=== PATIENT | male | born 1945 | race Caucasian/White ===

== ENCOUNTER → 2016-12-19 | Outpatient (CLI) | payer BC ==
[~2016-12-19] MED LIST: ASCO500C PO; FISH OI1 PO; LPT40 PO; MULT-506 PO; NXM/40 PO; VERA120T15 PO
[2016-12-19 12:51] LABS: BASO % 1.2 %; BASO ABS # 0.07 K/uL (0-0.2); COMPLETE YES; EOS % 4.9 %; HEMATOCRIT 39.9 % (42-52); LYMPH % 44.3 %; LYMPH ABS # 2.51 K/uL (1.2-3.4); MEAN CELL VOLUME 93.4 fL (80-100); MEAN CORPUSCULAR HEMOGLOBIN 32.8 pg (25-34); MEAN CORPUSCULAR HGB CONC 35.1 g/dl (32-36); MEAN PLATELET VOLUME 11.3 fL (7.4-10.4); MONO % 9.2 %; NEUT % 40.4 %; PLATELET COUNT 193 K/uL (130-400); RED BLOOD COUNT 4.27 M/uL (4.7-6.1); WHITE BLOOD COUNT 5.67 K/uL (4.8-10.8)
[2016-12-19 13:40] LABS: ESTIMATED AVERAGE GLUCOSE 114 mg/dl; HA1C FLAG Normal (Normal)
== END | disposition home or self-care (01) ==
LOC: C.LABBFT 09:29
PROVIDERS: ATTEND Internal Medicine
DX: R73.01 Impaired fasting glucose (principal); D64.9 Anemia, unspecified

== ENCOUNTER → 2017-01-20 | Outpatient (CLI) | payer BC ==
[~2017-01-20] MED LIST changes: +OPTIRAY 320 IV PRN
--- NOTE | 2017-01-20 14:17 | DIAGNOSTIC IMAGING REPORT ---
NECK CTA HISTORY: Stenosis CAROTID ARTERY STENOSIS TECHNIQUE: Multiaxial CT images of the neck were performed following the intravenous administration of contrast to evaluate the major cervical vessels. Maximum intensity projection images were also obtained. All measurements were calculated based on NASCET criteria. COMPARISON STUDY: Carotid Doppler dated 01/14/2014 FINDINGS: The aortic arch and proximal great vessels are widely patent. The vertebral basilar system shows vertebral arteries to be relatively small in caliber bilaterally. There is been a prior gastric pull pull-through procedure of the chest. Evaluation of the carotid systems demonstrates considerable plaque formation at the right carotid bifurcation as well as proximal right internal carotid artery. There is a 50-60% stenosis of the distal common carotid artery. There is a 70-80 the more distal aspects of the right internal carotid artery are unremarkable. Left carotid system shows no significant stenotic process of the left common carotid artery. There is a 50 present stenosis left internal carotid artery. Remainder of the left internal carotid artery distally is unremarkable. Stenosis origin of the right internal carotid artery. 1. 50-60% stenosis distal right common carotid artery. 2. 70-80% stenosis proximal right internal carotid artery. 3. 50% stenosis left internal carotid artery. 4. Minimal narrowing of the vertebral systems with no significant stenotic process. 5. Gastric pull-through procedure of the chest IMPRESSION: No significant stenosis, occlusion, or dissection identified within the carotid or vertebral arteries. Electronically signed by: Arie Yusuf M.D. 01/20/2017 2:15 PM Dictated Date/Time: 01/20/2017 2:09 PM
== END | disposition home or self-care (01) ==
LOC: C.CTS 13:28
PROVIDERS: ATTEND Internal Medicine
DX: I65.29 Occlusion and stenosis of unspecified carotid artery (principal)

== ENCOUNTER → 2017-03-13 | Outpatient (CLI) | payer BC ==
[~2017-03-13] MED LIST changes: -OPTIRAY 320 IV PRN
--- NOTE | 2017-03-13 10:21 | DIAGNOSTIC IMAGING REPORT ---
ULTRASOUND OF THE CAROTID ARTERIES CLINICAL HISTORY: Carotid artery stenosis. COMPARISON STUDY: Carotid artery ultrasound dated 01/14/2014. CT angiogram of the neck dated 01/20/2017. TECHNIQUE: Real-time, grayscale, and color Doppler sonography of the carotid arteries is performed. Images are reviewed in the transverse and longitudinal planes. FINDINGS: Blood pressure in the right arm measures 168/85 and blood pressure in the left arm measures 162/47. The carotid arteries are patent bilaterally and demonstrate antegrade flow. There is moderate echogenic shadowing atherosclerotic plaque seen in the carotid bulbs bilaterally, left greater than right. Normal doppler arterial waveforms are seen throughout. Velocity measurements are listed below. Common carotid peak systolic velocity (cm/sec): RIGHT: 93 LEFT: 111 ICA proximal peak systolic velocity (cm/sec): RIGHT: 76 LEFT: 104 ICA mid peak systolic velocity (cm/sec): RIGHT: 106 LEFT: 101 ICA distal peak systolic velocity (cm/sec): RIGHT: 115 LEFT: 112 ICA/CC peak systolic ratio: RIGHT: 1.2 LEFT: 1.0 Antegrade flow was shown in the vertebral arteries. The external carotid arteries are patent. IMPRESSION: 1. Atherosclerotic plaque with no sonographic evidence of hemodynamically significant stenosis in the right or left carotid arterial system. 2. Antegrade flow is shown in the vertebral arteries. Electronically signed by: Enrike Guy M.D. 03/13/2017 10:19 AM Dictated Date/Time: 03/13/2017 10:17 AM
== END | disposition home or self-care (01) ==
LOC: C.ULTR 09:43
PROVIDERS: ATTEND Surgery
DX: I65.29 Occlusion and stenosis of unspecified carotid artery (principal)

== ENCOUNTER → 2017-06-16 | Outpatient (CLI) | payer BC ==
[2017-06-16 12:30] LABS: BASO ABS # 0.06 K/uL (0-0.2); COMPLETE YES; EOS % 3.3 %; HEMATOCRIT 41.2 % (42-52); LYMPH % 49.2 %; LYMPH ABS # 2.87 K/uL (1.2-3.4); MEAN CELL VOLUME 95.8 fL (80-100); MEAN CORPUSCULAR HEMOGLOBIN 33.3 pg (25-34); MEAN CORPUSCULAR HGB CONC 34.7 g/dl (32-36); MEAN PLATELET VOLUME 11.3 fL (7.4-10.4); MONO % 10.8 %; NEUT % 35.7 %; PLATELET COUNT 195 K/uL (130-400); WHITE BLOOD COUNT 5.83 K/uL (4.8-10.8)
[2017-06-16 12:35] LABS: ALT/SGPT 41 U/L (12-78); AST/SGOT 27 U/L (15-37); BLOOD UREA NITROGEN 17 mg/dl (7-18); BUN/CREATININE RATIO 18.1 (10-20); CARBON DIOXIDE 27 mmol/L (21-32); CHLORIDE 106 mmol/L (98-107); CHOLESTEROL 180 mg/dl (0-200); CREATININE 0.96 mg/dl (0.60-1.40); GLUCOSE 102 mg/dl (70-99); POTASSIUM 4.5 mmol/L (3.5-5.1); SODIUM 139 mmol/L (136-145)
[2017-06-16 12:40] LABS: ALKALINE PHOSPHATASE 97 U/L (45-117); CHOLESTEROL/HDL RATIO 1.9; HDL CHOLESTEROL 95 mg/dl; LDL CHOLESTEROL CALCULATED 72 mg/dl; PROSTATE SPECIFIC ANTIGEN 0.234 ng/ml (0.000-4.000); TRIGLYCERIDES 67 mg/dl (0-150); VERY LOW DENSITY LIPOPROT CALC 13 mg/dl
[2017-06-16 12:55] LABS: ESTIMATED AVERAGE GLUCOSE 114 mg/dl; HA1C FLAG Normal (Normal)
[2017-06-16 12:57] LABS: URINE APPEARANCE CLEAR (CLEAR); URINE BILIRUBIN NEG (NEG); URINE COLOR YELLOW; URINE EPITHELIAL CELL AUTO >30 /lpf (0-5); URINE NITRITE NEG (NEG); URINE SPECIFIC GRAVITY 1.016 (1.000-1.030); UROBILINOGEN NEG (NEG); ZZUR CULT IF INDIC CLEAN CATCH NO
[2017-06-16 13:10] LABS: MANUAL MICROSCOPIC REQUIRED? NO; REVIEW REQ? NO
--- NOTE | 2017-06-27 09:23 | CODING QUERY MEDICAL NECESSITY ---
SUPPORTING DIAGNOSIS NEEDED A supporting diagnosis is required for the test/procedure performed on this patient in order for us to be reimbursed by the patient's insurance. Please provide a supporting diagnosis for the following test/procedure listed below next to the test name along with your signature. *If there is no additional diagnosis for this patient that would support the following test/procedure please document that below next to the test/procedure. Test(s)/Procedure(s) that require a supporting diagnosis: * PSA DIAGNOSIS: Provider Signature: Date: Thank you Pauline Samuel [employer] Once completed, please kindly fax back to [phone] For questions please call [phone]
== END | disposition home or self-care (01) ==
LOC: C.LABBFT 08:42
PROVIDERS: ATTEND Internal Medicine
DX: R73.01 Impaired fasting glucose (principal); N52.9 Male erectile dysfunction, unspecified; E78.00 Pure hypercholesterolemia, unspecified; N40.0 Benign prostatic hyperplasia without lower urinary tract symptoms

== ENCOUNTER → 2017-07-19 | Outpatient (CLI) | payer BC ==
[2017-07-19 12:28] LABS: BLOOD UREA NITROGEN 16 mg/dl (7-18); BUN/CREATININE RATIO 17.4 (10-20); CALCIUM 9.1 mg/dl (8.5-10.1); CARBON DIOXIDE 29 mmol/L (21-32); CHLORIDE 107 mmol/L (98-107); CREATININE 0.91 mg/dl (0.60-1.40); GLUCOSE 100 mg/dl (70-99); POTASSIUM 4.1 mmol/L (3.5-5.1); SODIUM 141 mmol/L (136-145)
== END | disposition home or self-care (01) ==
LOC: C.LABBFT 09:31
PROVIDERS: ATTEND Internal Medicine
DX: I10 Essential (primary) hypertension (principal)

== ENCOUNTER → 2017-09-13 | Outpatient (CLI) | payer BC ==
--- NOTE | 2017-09-13 10:45 | DIAGNOSTIC IMAGING REPORT ---
ULTRASOUND OF THE CAROTID ARTERIES CLINICAL HISTORY: I65.29 Carotid artery stenosis, follow-up examination COMPARISON STUDY: 03/13/2017 TECHNIQUE: Real-time, grayscale, and color Doppler sonography of the carotid arteries was performed. Imaging reviewed in the transverse and longitudinal planes. NASCET criteria was utilized for stenosis calcification. FINDINGS: There is moderate atherosclerotic plaque present . The peak systolic velocity within the right internal carotid artery is 132 cm/sec. The systolic velocity ratio of right internal to common carotid artery is 1.1. The peak systolic velocity within the left internal carotid artery is 145 cm/sec. The systolic velocity ratio left internal to common carotid artery is 1.0. Antegrade flow is seen in the vertebral arteries. The external carotid arteries are patent. Blood pressure in the right arm measured 157 mm/Hg. Blood pressure in the left arm measured 164 mm/Hg. IMPRESSION: 1. Bilateral atheromatous changes 2. Less than 50% stenosis the right internal carotid artery 3. 50-69% stenosis of the left internal carotid artery Electronically signed by: Demetrio Winter M.D. 09/13/2017 10:44 AM Dictated Date/Time: 09/13/2017 10:39 AM
== END | disposition home or self-care (01) ==
LOC: C.ULTR 09:46
PROVIDERS: ATTEND Surgery
DX: I65.23 Occlusion and stenosis of bilateral carotid arteries (principal)

== ENCOUNTER → 2017-10-16 | Day surgery (SDC) | payer BC ==
[2017-09-22 09:50] VITALS: Ht 177.8 cm; Wt 77.3 kg
[~2017-10-16] VITALS: Ht 177.8 cm; Wt 77.3 kg
[~2017-10-16] MED LIST changes: -ASCO500C PO; -FISH OI1 PO; +IRBE-37 PO; +LIDOCAINE HCL 2% 2 ML VIAL (20MG/ML) ONE; +PROPOFOL IV EMULSION 10 MG/ML 20 ML VIAL IV ONE; +SODIUM CHLORIDE 0.9% 500ML 500 ML IV ONE; -VERA120T15 PO
--- NOTE | 2017-10-16 09:50 | Endo History and Physical ---
History & Physical Date of Service: Oct 16, 2017. Chief Complaint: screening Referring Physician: Dr. Rm History of Present Illness 71 yo CM who presents for screening colonoscopy. Past Medical History Arthritis, Male Genitourinary Prob., Reflux, Cancer, High Cholesterol, Hypertension Past Surgical History Hx Cardiac Surgery: No Hx Internal Defibrillator: No Hx Pacemaker: No Hx Abdominal Surgery: Yes (HERNIA REPAIR X2) Hx of Implantable Prosthesis: No Hx Post-Op Nausea and Vomiting: No Hx Cancer Surgery: Yes (BCC EXCISION) Hx Thoracic Surgery: No Hx Orthopedic: Yes (LT RCR) Hx Urinary Tract Surgery: No Family History None Social History Smoking Status: Former Smoker Hx Substance Use: No Hx Alcohol Use: Yes (1 DRINK/DAY) Allergies Coded Allergies: Latex1 -Allergic Contact Dermititis (Verified Adverse Reaction, Unknown, "BURNING SENSATION AT THE DENTIST", 10/16/17) Current Medications Reported Home Medications Medications Dose Route/Sig Max Daily Dose Days Date Category Avapro (Irbesartan) 150 Mg Tab 150 Mg PO QAM 09/22/17 Reported Atorvastatin Calcium (Atorvastatin) 40 Mg Tab 1 Tab PO HS 01/20/16 Reported Multivitamin (Multivitamins) Tab 1 Tab PO QAM 11/27/09 Reported Nexium (Esomeprazole Magnesium) 40 Mg Capcr 40 Mg PO BID 11/27/09 Reported Vital Signs Weight (Kilograms): 77.27 Height (Feet): 5 Height (Inches): 10 Date Time Temp Pulse Resp B/P (MAP) Pulse Ox O2 Delivery O2 Flow Rate FiO2 10/16/17 09:34 36.7 70 18 168/70 (102) 99 Room Air Physical Exam General Appearance: WD/WN, no apparent distress Respiratory/Chest: Auscultation: breath sounds normal Cardiovascular: Heart Auscultation: RRR Abdomen: Bowel Sounds: normal Inspection & Palpation: soft, non-distended, no tenderness, guarding & rebound Assessment and Plan Assessment: 71 yo CM who presents for screening colonoscopy. Plan: Proceed with colonoscopy.
--- NOTE | 2017-10-16 10:22 | GI REPORT ---
Procedure Date: 10/16/2017 9:35 AM Procedure: Colonoscopy Indications: Screening for colorectal malignant neoplasm Medicines: Monitored Anesthesia Care Complications: No immediate complications. Estimated Blood Loss: Estimated blood loss: none. Procedure: Pre-Anesthesia Assessment: - Prior to the procedure, a History and Physical was performed, and patient medications and allergies were reviewed. The patient's tolerance of previous anesthesia was also reviewed. The risks and benefits of the procedure and the sedation options and risks were discussed with the patient. All questions were answered, and informed consent was obtained. Prior Anticoagulants: The patient has taken no previous anticoagulant or antiplatelet agents. ASA Grade Assessment: II - A patient with mild systemic disease. After reviewing the risks and benefits, the patient was deemed in satisfactory condition to undergo the procedure. After I obtained informed consent, the scope was passed under direct vision. Throughout the procedure, the patient's blood pressure, pulse, and oxygen saturations were monitored continuously. The scope was introduced through the anus and advanced to the terminal ileum. The colonoscopy was performed without difficulty. The patient tolerated the procedure well. The quality of the bowel preparation was good. The terminal ileum, ileocecal valve, appendiceal orifice, and rectum were photographed. Findings: A 4 mm polyp was found in the hepatic flexure. The polyp was sessile. The polyp was removed with a cold snare. Resection and retrieval were complete. Multiple small-mouthed diverticula were found in the sigmoid colon. Non-bleeding internal hemorrhoids were found during retroflexion. The hemorrhoids were small. Impression: - One 4 mm polyp at the hepatic flexure, removed with a cold snare. Resected and retrieved. - Diverticulosis in the sigmoid colon. - Non-bleeding internal hemorrhoids. Recommendation: - Resume previous diet. - Continue present medications. - Repeat colonoscopy for surveillance based on pathology results. - Return to primary care physician as previously scheduled. Ildefonso Barillas DO 10/16/2017 10:21:34 AM This report has been signed electronically. Note Initiated On: 10/16/2017 9:35 AM I attest to the content of the Intraoperative Record and orders documented therein, exceptions below
--- NOTE | 2017-10-16 10:33 | Discharge Instructions ---
Endoscopy Patient Instructions Date / Procedure(s) Performed Oct 16, 2017. Colonoscopy Allergy Information Coded Allergies: Latex1 -Allergic Contact Dermititis (Verified Adverse Reaction, Unknown, "BURNING SENSATION AT THE DENTIST", 10/16/17) Discharge Date / Findings Oct 16, 2017. Colon polyp Diverticulosis Internal hemorrhoids Medication Instructions OK to resume all medications today as prescribed Reported Home Medications Medications Dose Route/Sig Max Daily Dose Days Date Category Avapro (Irbesartan) 150 Mg Tab 150 Mg PO QAM 09/22/17 Reported Atorvastatin Calcium (Atorvastatin) 40 Mg Tab 1 Tab PO HS 01/20/16 Reported Multivitamin (Multivitamins) Tab 1 Tab PO QAM 11/27/09 Reported Nexium (Esomeprazole Magnesium) 40 Mg Capcr 40 Mg PO BID 11/27/09 Reported Provider Instructions Activity Restrictions - No exercising or heavy lifting for 24 hours. - Do not drink alcohol the day of the procedure. - Do not drive a car or operate machinery until the day after the procedure. - Do not make any important decisions or sign important papers in 24 hours after the procedure. Following Day: - Return to full activity which may include returning to work/school. Diet Start your diet with liquids and light foods (jello, soup, juice, toast). Then eat your usual diet if not nauseated. Treatment For Common After Affects For mild abdominal pain, bloating, or excessive gas: - Rest - Eat lightly - Lie on right side Follow-Up Information Follow-up with Dr. Rm as scheduled Anesthesia Information What You Should Know You have had a procedure that required some medicine to reduce anxiety and discomfort. This treatment is called moderate sedation. After receiving the treatment, you may be sleepy, but you will be able to breathe on your own. The effects of the treatment may last for several hours. Follow these instructions along with Activity/Diet recommendations noted above: * Do NOT do anything where dizziness or clumsiness would be dangerous. * Rest quietly at home today, then you can be up and about tomorrow. * Have a responsible person stay with you the rest of today. * You may have had an I.V. today. If so, you may take the dressing off later today. Recommendations Call your doctor if: * Trouble breathing * Continuous vomiting for more than 24 hours * Temperature above 101 degrees * Severe abdominal pain or bloating * Pain not relieved by pain medicine ordered * There is increased drainage or redness from any incision * A large amount of rectal bleeding greater than 2-3 tablespoons. (If you had a polyp/s removed or have hemorrhoids, a small amount of blood - from the rectum is to be expected.) * You have any unanswered questions or concerns. IN THE EVENT OF A SERIOUS EMERGENCY, GO TO THE NEAREST EMERGENCY ROOM Your discharge instructions were prepared by provider Ildefonso Barillas. Patient Instructions Signature Page Jacob Arias Patient (or Guardian) Signature/Date: I have read and understand the instructions given to me by my caregivers. Caregiver/RN/Doctor Signature/Date: The above-named patient and/or guardian has received patient instructions on this date. + Original Patient Signature Page (only) stays with chart. Please make copy for patient.
--- NOTE | 2017-10-16 10:51 | Anesthesiology Progress Note ---
Anesthesia Post Op Note Date & Time Oct 16, 2017 at 10:51 Vital Signs Pain Intensity: 0 Vital Signs Past 12 Hours Date Time Temp Pulse Resp B/P (MAP) Pulse Ox O2 Delivery O2 Flow Rate FiO2 10/16/17 10:36 77 18 121/85 (97) 96 Room Air 10/16/17 10:22 36.4 85 18 86/48 (61) 96 Room Air 10/16/17 09:34 36.7 70 18 168/70 (102) 99 Room Air Notes Mental Status: alert / awake / arousable, participated in evaluation Pt Amnestic to Procedure: Yes Nausea / Vomiting: adequately controlled Pain: adequately controlled Airway Patency, RR, SpO2: stable & adequate BP & HR: stable & adequate Hydration State: stable & adequate Anesthetic Complications: no major complications apparent
[2017-10-16 10:56] VITALS: BP 136/64; PULSE 74; O2SAT 98
== END | disposition home or self-care (01) ==
LOC: C.GI 09:08
PROVIDERS: ATTEND Internal Medicine
DX: Z12.11 Encounter for screening for malignant neoplasm of colon (principal); D12.3 Benign neoplasm of transverse colon; K57.30 Diverticulosis of large intestine without perforation or abscess without bleeding; K64.8 Other hemorrhoids; I10 Essential (primary) hypertension; E78.00 Pure hypercholesterolemia, unspecified; K21.9 Gastro-esophageal reflux disease without esophagitis; M19.90 Unspecified osteoarthritis, unspecified site; Z87.891 Personal history of nicotine dependence; Z79.899 Other long term (current) drug therapy

== ENCOUNTER → 2017-12-26 | Outpatient (CLI) | payer BC ==
[~2017-12-26] MED LIST changes: -LIDOCAINE HCL 2% 2 ML VIAL (20MG/ML) ONE; -PROPOFOL IV EMULSION 10 MG/ML 20 ML VIAL IV ONE; -SODIUM CHLORIDE 0.9% 500ML 500 ML IV ONE
[2017-12-26 13:10] LABS: ALBUMIN 3.5 gm/dl (3.4-5.0); ALT/SGPT 56 U/L (12-78); BLOOD UREA NITROGEN 15 mg/dl (7-18); CALCIUM 8.9 mg/dl (8.5-10.1); CARBON DIOXIDE 28 mmol/L (21-32); CHOLESTEROL 160 mg/dl (0-200); CREATININE 0.91 mg/dl (0.60-1.40); GLUCOSE 102 mg/dl (70-99); POTASSIUM 4.2 mmol/L (3.5-5.1); SODIUM 140 mmol/L (136-145)
[2017-12-26 13:14] LABS: ALKALINE PHOSPHATASE 73 U/L (45-117); AST/SGOT 83 U/L (15-37); LDL CHOLESTEROL CALCULATED 74 mg/dl; TOTAL PROTEIN 6.8 gm/dl (6.4-8.2)
== END | disposition home or self-care (01) ==
LOC: C.LABBFT 08:53
PROVIDERS: ATTEND Internal Medicine
DX: R73.01 Impaired fasting glucose (principal); E78.00 Pure hypercholesterolemia, unspecified

== ENCOUNTER 2021-05-02 12:13 | Inpatient (IN) ==
[~2021-05-02 12:13] MED LIST changes: -IRBE-37 PO; -LPT40 PO; -MULT-506 PO; -NXM/40 PO; +SODIUM CHLORIDE 0.9% 500 ML IV STA
[2021-05-02] MEDS ORDERED: ATROPINE SULFATE 0.1 MG/ML 10ML SYR IV STA (12:17)
[2021-05-02] MEDS ORDERED: ASPIRIN CHEW 324 MG PO STA (12:17)
[2021-05-02] MEDS ORDERED: ATROPINE SULFATE 0.1 MG/ML 5ML SYR IV ONE (12:18)
[2021-05-02 12:36] LABS: Basophils # (auto) 0.04 K/uL (0-0.2); Basophils % (auto) 0.4 %; Eosinophils # (auto) 0.07 K/uL (0-0.5); Eosinophils % (auto) 0.7 %; Hematocrit (blood only) 40.5 % (42-52); Hemoglobin 13.9 g/dL (14.0-18.0); Immature Granulocytes # (auto) 0.01 K/uL (0.00-0.02); Immature Granulocytes % (auto) 0.1 %; Lymphocytes # (auto) 4.39 K/uL (1.2-3.4); Lymphocytes % (auto) 46.8 %; Mean Corpuscular Hemoglobin 32.6 pg (25-34); Mean Corpuscular Hgb Conc 34.3 g/dL (32-36); Mean Corpuscular Volume 94.8 fL (80-100); Mean Platelet Volume 12.1 fL (7.4-10.4); Monocytes # (auto) 0.58 K/uL (0.11-0.59); Monocytes % (auto) 6.2 %; Neutrophils # (auto) 4.29 K/uL (1.4-6.5); Neutrophils % (auto) 45.8 %; Platelet Count 171 K/uL (130-400); RDW Coefficient of Variation 13.4 % (11.5-14.5); RDW Standard Deviation 46.3 fL (36.4-46.3); Red Blood Count 4.27 M/uL (4.7-6.1); White Blood Count 9.38 K/uL (4.8-10.8)
[2021-05-02 12:39] LABS: iSTAT Creatinine 1.1 mg/dl (0.6-1.3); iSTAT Hemoglobin 14.3 g/dl (14.0-18.0); iSTAT Ionized Calcium 1.17 mmol/l (1.12-1.32); iSTAT Potassium 3.8 mmol/L (3.3-5.0)
--- NOTE | 2021-05-02 12:40 | Emergency Department Note ---
Impression & Plan ST elevation (STEMI) myocardial infarction, ST elevation myocardial infarction (STEMI) of lateral wall, Syncope, Head injury, Atrial fibrillation, Contusion of elbow, left ED Provider Note NAME: ADAM CASTILLO AGE: 75 SEX: M : 1945 ARRIVES VIA: Ambulance INFORMANT: Patient, ED PROVIDER(S): Geoffrey Garcia DO CHIEF COMPLAINT: Syncope HPI: The patient is a 75-year-old male who presented to the emergency department by ambulance for syncope. The patient states that he was on a stepladder washing the top of the vehicle and started feeling dizzy. He had a syncopal episode and then was on the ground. He was noted to be on the ground and unconscious by a neighbor. The neighbor went to evaluate the patient and he was found to be very diaphoretic and pale. 911 was called and the patient was evaluated by the prehospital personnel. He was then brought to the emergency department via ALS protocol. The patient had a very abnormal EKG prior to arrival. I did receive a prehospital notification about the patient. The patient had EKG changes it could be consistent with ischemia so a heart alert was called. Upon arrival the patient was diaphoretic but he has no complaints at this time. He states he had lightheadedness and dizziness and felt the syncopal episode coming on. He is never had a syncopal episode in the past. He does not have any chest pain at this time. He denies having any shortness of breath or abdominal pain. He denies having any lower extremity pain or recent trauma. The patient states he has been compliant with his other outpatient medications. He states that he has had no recent traveling. He denies having any lower extremity swelling. He denies any injury but did have signs of trauma on the back of his head as well as on his left elbow. ROS: See above HPI for pertinent positives & negatives. A total of 10 systems reviewed and were otherwise negative. PAST MEDICAL HISTORY: See Below PAST SURGICAL HISTORY: See Below FAMILY HISTORY: See Below SOCIAL HISTORY: See Below HOME MEDICATIONS: See Below ALLERGIES: See Below VITALS: See Below PHYSICAL EXAMINATION: GENERAL: The patient is awake and alert. He is somewhat anxious appearing. He is diaphoretic. He is immobilized on a long spine board with rigid cervical collar. EYES: The conjunctivae are clear. The pupils are round and reactive. EARS, NOSE, MOUTH AND THROAT: The nose is without any evidence of any deformity. NECK: The neck is nontender and supple. RESPIRATORY: Normal respiratory effort is noted there is no evidence of wheezing rhonchi or rales CARDIOVASCULAR: Regular rate and rhythm noted there no murmurs rubs or gallops normal S1 normal S2. GASTROINTESTINAL: The abdomen is soft. Abdomen is nontender. No pulsatile mass was appreciated. BACK: No midline tenderness or or step-off noted range of motion in flexion extension as well as rotation no signs of muscle spasm noted MUSCULOSKELETAL/EXTREMITIES: There is no evidence of gross deformity full range of motion is noted in the hips and shoulders. SKIN: Skin was cool and diaphoretic. There was no significant pedal edema. There is an abrasion over the left elbow. NEUROLOGIC: Patient is awake alert and oriented x3. MEDICAL DECISION MAKING: The patient is a 75-year-old male who presented to the emergency department for an evaluation after having a syncopal episode. The patient was on a step ladder washing a car when he had a syncopal episode. He was found by the neighbor. 911 was called. The patient was diaphoretic and had very abnormal EKG prior to arrival. We were called about the patient by the prehospital personnel and the patient was made a heart alert prior to arrival. The patient initially had a wide-complex rhythm. His EKG did appear to be consistent with significant ischemia. He has no history of a bundle branch block in the past. The patient on multiple EKGs. His initial EKG in the emergency department did appear to be consistent with a STEMI. His QRS complex did narrow. He was treated with IV fluids and aspirin in the emergency department. He was reevaluated multiple times. He did receive 1 dose of atropine for bradycardia. A repeat EKG did show significant improvement on the previously noted ST segment abnormalities. I discussed his case multiple times with the sales ambassador. Because the patient presented with trauma CT of the head neck was obtained prior to the patient going to the [facility] to exclude intracranial hemorrhage or cervical spine injury. He also had a CT of the abdomen to ensure that his syncope was not secondary to an intra-abdominal source. The patient had no abdominal pain. He was very diaphoretic initially but this improved as well in the emergency department. The patient himself did not have any chest discomfort. On further questioning by sustainability consultant he did admit that he was having some degree of back pain with exertion this could be consistent with an anginal equivalent. He does have a very significant history of achalasia. The patient ultimately was found to be a good candidate for cardiac catheterization and was taken to the cardiac catheterization lab. Triage Nursing notes reviewed. Prior medical records reviewed Vital Signs: reviewed and remarkable for no significant abnormalities Differential diagnosis: Vasovagal event, dehydration, infection, hypoglycemia, electrolyte abnormalities, cardiac sources, intracerebral event, pulmonary embolism, seizure, toxicologic, neurologic, as well as other pathologies. ER treatment provided: See below Diagnostics interpreted by me: ECG: EKG was obtained in the emergency department. My interpretation is junctional rhythm at 59 bpm. There were no PVCs noted. Acute ST segment elevations were noted in the high lateral leads as well as in the anterior leads. Reciprocal changes were noted in the inferior leads. Consistent with acute ischemia and STEMI. This was compared to a tracing from November 302018. The ischemic changes are new compared to previous. Prehospital personnel provided multiple EKGs. On the EKG from 12:01 PM my interpretation is atrial flutter at 74 bpm. There was a wide-complex QRS noted with acute ST segment depressions noted in the inferior and lateral leads. This is consistent with ischemia unchanged from the earlier tracing. A second 12- lead EKG from 12:03 PM was evaluated by myself. This appears to be consistent with atrial fibrillation at [address] elevation was noted with reciprocal changes in inferior leads. There is consistent with acute STEMI. A second EKG was obtained in the emergency department. My interpretation is atrial fibrillation at 76 bpm. No PVCs were noted. There were still a persistence of ST segment abnormalities in the inferior leads however the ST segment elevations have significantly improved. Cardiac Monitoring: An order was placed for continuous cardiac monitoring. The monitor shows a rate of 85 bpm with atrial fibrillation rhythm. Laboratory studies: As stated above and show below. Imaging studies: See below Consultation(s): I discussed this case with Dr. Rosas who is on-call for interventional cardiology. He will evaluate the patient in the emergency department. ED COURSE: Procedures: none PDMP:reviewed and no issues Critical Care: I have personally spent greater than 45 minutes of critical care time in the direct management of this patient. This includes bedside care, interpretation of diagnostic studies, and testing, discussion with consultants, patient, and family members, and other required patient management activities. This 45 minutes is in excess of all separately billable procedures. Past Med/Surg History Medical History Achalasia Anemia Basal cell carcinoma of skin Benign prostate hyperplasia Carotid artery stenosis, asymptomatic Chronic sinusitis Diverticulosis Dysphagia, pharyngeal phase Esophageal candidiasis Esophagus disorder Essential hypertension Hypercholesterolemia Impaired fasting glucose Internal hemorrhoids Male erectile disorder of organic origin Mitral regurgitation Rheumatic fever Tubular adenoma of colon (2018) Surgical History History of arthroscopy of left shoulder History of esophageal surgery History of vasectomy Status post biopsy of skin Status post unilateral inguinal hernia repair Family History Father Stroke syndrome Hyperlipidemia Mother Hypertension Mother Hypertension Sister Hypertension Other Family history non-contributory Social History Smoking Status: Never smoker Age Started Using Tobacco: 19; Age Quit Using Tobacco: 27; packs per day: 1; Years Smoked: 8; Cigarettes Per Day: 20; Number of Years Since Quit: 46; Second Hand Exposure: No; Hx Alcohol Use: Yes Alcohol type: hard liquor Alcohol Intake Frequency Comment: About 1 alcoholic drink per day. Hx Substance Use: No Preferred Language: Finnish Visual Impairment: No Limitations Hearing Ability: Normal Beliefs That Will Affect Care: None marital status: Current Living Situation: Spouse current occupational status: retired How many Children do You have: 2 Feels Safe at Home: Yes Childhood Exposure to Second-Hand Smoke: Yes caffeine: Yes during the past year weight has: remained stable Dental Care, Regularly: Yes Physical Activity Frequency: 1-2 Times per Week Seatbelt Use: always Sunscreen Use: Yes Allergies Allergies Allergy/AdvReac Type Severity Reaction Status Date / Time No Known Drug Allergies Allergy Verified 11/30/20 10:39 pollen extracts Allergy Verified 11/30/20 10:39 latex AdvReac Unknown "BURNING Verified 11/30/20 10:39 SENSATION AT THE DENTIST" Home Meds Home Medications Medication Instructions Recorded Confirmed aspirin 81 mg tablet,delayed 81 mg PO QAM 11/30/18 11/30/20 release multivitamin 1 tab PO QAM 11/30/18 11/30/20 Previous Rx's Medication Instructions Recorded atorvastatin 80 mg tablet 80 mg PO HS #90 tab 05/25/20 esomeprazole magnesium 40 mg 40 mg PO HS #90 cap 05/25/20 capsule,delayed release irbesartan 300 mg tablet 300 mg PO DAILY #90 tab 05/25/20 sildenafil 100 mg tablet 100 mg PO DAILY PRN #10 tab 05/25/20 amoxicillin 875 mg tablet 875 mg PO Q12H #20 tab 11/30/20 fluconazole 100 mg tablet 100 mg PO .COMPLEX #20 tab 11/30/20 Results & Data (ED) Vital Signs Vital Signs - 24 hr 05/02/21 12:15 05/02/21 12:16 05/02/21 12:20 Temperature 36.7 C Temperature Source Oral Pulse Rate 58 L 58 L 84 Pulse Rate from SpO2 Sensor 58 L 84 Respiratory Rate 20 24 24 Blood Pressure 132/73 132/73 Blood Pressure Mean 92 92 Pulse Oximetry 95 93 92 Oxygen Delivery Method Room Air Sepsis Recent Fever Within 48 Hours No Sepsis New/Unexplained Change in Mental Status No Sepsis Action Taken by Nursing No Action Required Home Medications Current Medication List: was personally reviewed by me Laboratory Data Attestation: I reviewed the patient's lab results. Result diagrams: 05/02/21 12:20 05/02/21 12:20 Lab Results 05/02/21 05/02/21 05/02/21 Range/Units 12:17 12:17 12:20 WBC 9.38 (4.8-10.8) K/uL RBC 4.27 L (4.7-6.1) M/uL Hgb 13.9 L (14.0-18.0) g/dL POC Hgb (14.0-18.0) g/dl Hct 40.5 L (42-52) % POC Hct (42-52) % MCV 94.8 (80-100) fL MCH 32.6 (25-34) pg MCHC 34.3 (32-36) g/dL RDW Std Deviation 46.3 (36.4-46.3) fL RDW Coeff of Rizwan 13.4 (11.5-14.5) % Plt Count 171 (130-400) K/uL MPV 12.1 H (7.4-10.4) fL Immature Gran % (Auto) 0.1 % Neut % (Auto) 45.8 % Lymph % (Auto) 46.8 % Thayer % (Auto) 6.2 % Eos % (Auto) 0.7 % Baso % (Auto) 0.4 % Neut # (Auto) 4.29 (1.4-6.5) K/uL Lymph # (Auto) 4.39 H (1.2-3.4) K/uL Thayer # (Auto) 0.58 (0.11-0.59) K/uL Eos # (Auto) 0.07 (0-0.5) K/uL Baso # (Auto) 0.04 (0-0.2) K/uL Immature Gran # (Auto) 0.01 (0.00-0.02) K/uL PT (9.0-12.0) Seconds INR (0.9-1.1) APTT (21.0-31.0) Seconds PTT Ratio POC Sodium (135-144) mmol/L Sodium (136-145) mmol/L POC Potassium (3.3-5.0) mmol/L Potassium (3.5-5.1) mmol/L POC Chloride (101-112) mmol/L Chloride (98-107) mmol/L Carbon Dioxide (21-32) mmol/L POC Total CO2 (24-31) mmol/L Anion Gap (3-11) POC Anion Gap (16-25) mmol/L POC BUN (7-18) mg/dl BUN (7-18) mg/dl Creatinine (0.6-1.4) mg/dl POC Creatinine (0.6-1.3) mg/dl Est Cr Clr Drug Dosing ml/min Est GFR ( Amer) ml/min Est GFR (Non-Af Amer) ml/min BUN/Creatinine Ratio (10-20) Glucose (70-99) mg/dl POC Glucose (other) (70-99) mg/dl Calcium (8.5-10.1) mg/dl POC Ioniz Calcium Sandrine (1.12-1.32) mmol/l Total Bilirubin (0.2-1) mg/dl AST (15-37) U/L ALT (12-78) U/L Alkaline Phosphatase (45-117) U/L Troponin I (0-0.045) ng/ml Total Protein (6.4-8.2) gm/dl Albumin (3.4-5.0) gm/dl Globulin (2.5-4.0) gm/dl Albumin/Globulin Ratio (0.9-2) Lipase (73-393) U/L COVID-19 Eval Order Covid19 IDNow [facility] SARS-CoV-2, RNA, NAAT NEGATIVE (NEGATIVE) 05/02/21 05/02/21 05/02/21 Range/Units 12:20 12:20 12:25 WBC (4.8-10.8) K/uL RBC (4.7-6.1) M/uL Hgb (14.0-18.0) g/dL POC Hgb 14.3 (14.0-18.0) g/dl Hct (42-52) % POC Hct 42 (42-52) % MCV (80-100) fL MCH (25-34) pg MCHC (32-36) g/dL RDW Std Deviation (36.4-46.3) fL RDW Coeff of Rizwan (11.5-14.5) % Plt Count (130-400) K/uL MPV (7.4-10.4) fL Immature Gran % (Auto) % Neut % (Auto) % Lymph % (Auto) % Thayer % (Auto) % Eos % (Auto) % Baso % (Auto) % Neut # (Auto) (1.4-6.5) K/uL Lymph # (Auto) (1.2-3.4) K/uL Thayer # (Auto) (0.11-0.59) K/uL Eos # (Auto) (0-0.5) K/uL Baso # (Auto) (0-0.2) K/uL Immature Gran # (Auto) (0.00-0.02) K/uL PT 11.1 (9.0-12.0) Seconds INR 1.1 (0.9-1.1) APTT 21.2 (21.0-31.0) Seconds PTT Ratio 0.8 POC Sodium 138 (135-144) mmol/L Sodium 136 (136-145) mmol/L POC Potassium 3.8 (3.3-5.0) mmol/L Potassium 3.7 (3.5-5.1) mmol/L POC Chloride 103 (101-112) mmol/L Chloride 102 (98-107) mmol/L Carbon Dioxide 18 L (21-32) mmol/L POC Total CO2 14 L (24-31) mmol/L Anion Gap 16.0 H (3-11) POC Anion Gap 25.0 (16-25) mmol/L POC BUN 19 H (7-18) mg/dl BUN 20 H (7-18) mg/dl Creatinine 1.41 H (0.6-1.4) mg/dl POC Creatinine 1.1 (0.6-1.3) mg/dl Est Cr Clr Drug Dosing 47.5 ml/min Est GFR ( Amer) 56.5 ml/min Est GFR (Non-Af Amer) 48.7 ml/min BUN/Creatinine Ratio 14.3 (10-20) Glucose 252 H (70-99) mg/dl POC Glucose (other) 265 H (70-99) mg/dl Calcium 9.4 (8.5-10.1) mg/dl POC Ioniz Calcium Sandrine 1.17 (1.12-1.32) mmol/l Total Bilirubin 0.8 (0.2-1) mg/dl AST 114 H (15-37) U/L ALT 113 H (12-78) U/L Alkaline Phosphatase 139 H (45-117) U/L Troponin I 3.380 H* (0-0.045) ng/ml Total Protein 7.2 (6.4-8.2) gm/dl Albumin 3.6 (3.4-5.0) gm/dl Globulin 3.6 (2.5-4.0) gm/dl Albumin/Globulin Ratio 1.0 (0.9-2) Lipase 106 (73-393) U/L COVID-19 Eval Order SARS-CoV-2, RNA, NAAT (NEGATIVE) Administered Medications Discontinued Medications Aspirin (Aspirin Chew 324 Mg) 324 mg PO NOW STA Stop: 05/02/21 12:18 Last Admin: 05/02/21 12:22 Dose: 324 mg Documented by: [id number] Atropine Sulfate (Atropine Sulfate 0.1 Mg/Ml 10ml Syr) 0.5 mg IV NOW STA Stop: 05/02/21 12:18 Last Admin: 05/02/21 12:22 Dose: Not Given Documented by: [id number] Atropine Sulfate (Atropine Sulfate 0.1 Mg/Ml 5ml Syr) Confirm Administered Dose 0.5 mg IV .[employer] Stop: 05/02/21 12:19 Last Admin: 05/02/21 12:21 Dose: 0.5 mg Documented by: [id number] Sodium Chloride (Nss) 500 mls @ 999 mls/hr IV .Q31M STA Stop: 05/02/21 12:42 Last Admin: 05/02/21 12:22 Dose: 999 mls/hr Documented by: [id number] Imaging Data Radiologist's Impression: Cervical Spine CT 05/02/21 12:15 CT OF THE CERVICAL SPINE CLINICAL HISTORY: fall COMPARISON STUDY: No previous studies for comparison. CT DOSE: TECHNIQUE: CT scan of the cervical spine was performed from the skull base to the thoracic inlet. Images are reviewed in the axial, sagittal, and coronal planes. IV contrast was not administered for this examination. A dose lowering technique was utilized adhering to the principles of ALARA. FINDINGS: The visualized portions of the lung apices reveal no evidence of pneumothorax on the left. There is questionable structure with frothy and gas collection between the trachea and vertebral body within thoracic inlet likely representing status post esophagectomy and pull-through procedure. There is possibly small portion o f visualized right lung parenchyma which shows no evidence of pneumothorax. The prevertebral soft tissues are normal. No fractures or subluxations are visualized. Diffuse osteopenia, multilevel heavy anterior osteophytes are seen. Multilevel degenerative changes are seen. Mild stenosis of the central canal is seen at the C6-C7 level. Prominent hypertrophic changes of facet joints are seen causing neural foraminal stenosis at multiple levels bilaterally. IMPRESSION: No acute fracture or traumatic malalignment. Limited exam due to diffuse severe osteopenia. Multilevel degenerative changes as detailed above. Other findings as detailed above. ACT 112: Negative or not required by law. The above report was generated using voice recognition software. It may contain grammatical, syntax or spelling errors. Electronically signed by: Malathi Segura DO 05/02/2021 12:[address] 05/02/21 12:15 CT head/brain wo con CLINICAL HISTORY: fall COMPARISON STUDY: No previous studies for comparison. TECHNIQUE: Axial CT of the brain is performed from the vertex to the skull base. IV contrast was not administered for this examination. A dose lowering technique was utilized adhering to the principles of ALARA. CT DOSE: FINDINGS: No intra or extra-axial mass lesions are visualized. There is no CT evidence of acute cortical infarction. There is no evidence of midline shift. There is no acute hemorrhage. No acute depressed calvarial fractures are visualized. There are patchy white matter hypodensities likely on a small vessel basis. There is no evidence of pathologic ventricular dilatation. There is no evidence of acute sinusitis IMPRESSION: No acute intracranial hemorrhage, no midline shift or space occupying lesions. No acute depressed skull fractures seen. ACT 112: Negative or not required by law. The above report was generated using voice recognition software. It may contain grammatical, syntax or spelling errors. Electronically signed by: Malathi Segura DO 05/02/2021 12:39 PM Abdomen/Pelvis CT 05/02/21 12:24 CT SCAN OF THE ABDOMEN AND PELVIS WITHOUT CONTRAST CLINICAL HISTORY: syncope COMPARISON STUDY: No previous studies for comparison. TECHNIQUE: CT scan of the abdomen and pelvis was performed from the lung bases to the proximal femurs. Images are reviewed in the axial, sagittal, and coronal planes. IV contrast was not administered for this examination. A dose lowering technique was utilized adhering to the principles of ALARA. CT DOSE: 1555.26 mGy.cm FINDINGS: Lower chest: Patchy areas of groundglass attenuation is seen within dependent portions of bilateral lower lobes which might represent atelectasis. 7 mm pulmonary nodule is seen adjacent to the minor fissure on the right. Evaluation of lung parenchyma is significantly limited due to motion artifact. Gas filled partially visualized structure within lower chest cavity might represent significantly dilated esophagus. Liver: The unenhanced liver is normal in size, contour, and attenuation. There is no intrahepatic biliary ductal dilatation. Gallbladder: Unremarkable. Spleen: Normal in size and attenuation. Pancreas: Is atrophic Adrenal glands: Unremarkable. Kidneys: The unenhanced kidneys are normal in size without hydronephrosis. There is no contour deforming renal mass lesion. No renal calculi are identified. Bowel: Nondilated loops of bowel. Appendix is not well seen. Evaluation is limited due to lack of intravenous contrast, motion artifact and beam hardening artifact from patient's arms. Large amount of stool is seen within rectum likely representing fecal impaction. Peritoneum: There is no intraperitoneal free air or abdominal ascites. Vasculature: The abdominal aorta is normal in course and caliber. Scattered sera cifications within aortic wall are seen. Adenopathy: None. Pelvic viscera: Urinary bladder is adequately filled with urine. Prostate gland is not significantly enlarged. Skeletal structures: Severe diffuse osteopenia. Multilevel degenerative changes of the spine. Possible compression fracture deformity of L5 and, to 12 and T10. IMPRESSION: 1. Possibly significantly dilated esophagus. Stomach is seen within the abdomen. Please correlate above-mentioned findings was prior history and gastroenterology evaluation. 2. Nondilated loops of bowel. Appendix is not well seen. Fecal impaction. 3. Atherosclerosis. 4. 7 mm pulmonary nodule within minor fissure on the right. Further evaluation with CT of the chest on nonemergency basis might be considered. 5. Multilevel compression fracture deformity of lumbar spine 6. The rest of findings as above. ACT 112: Positive. There are findings on this exam that require communication between the performing entity and the patient following Patient Test Result Information Act ([place] Act 112) guidelines. The above report was generated using voice recognition software. It may contain grammatical, syntax or spelling errors. Electronically signed by: Malathi Segura DO 05/02/2021 12:55 PM Discharge Plan Visit Data Chief Complaint: Cardiac Assessment Stated Complaint: FALL, CARDIAC ASSESSMENT ED Provider: Geoffrey Garcia Discharge Problem: ST elevation (STEMI) myocardial infarction, ST elevation myocardial infarction (STEMI) of lateral wall, Syncope, Head injury, Atrial fibrillation, Contusion of elbow, left Patient Disposition: Admitted As Inpatient Condition: Good Discharge Instructions Interventions: ED Discharge Assessment Last Done: 05/02/21 13:18
[2021-05-02 12:46] LABS: INR 1.1 (0.9-1.1); Partial Thromboplastin Ratio 0.8; Partial Thromboplastin Time 21.2 Seconds (21.0-31.0); Prothrombin Time 11.1 Seconds (9.0-12.0)
--- NOTE | 2021-05-02 12:47 | CT Scan Report ---
CT OF THE CERVICAL SPINE CLINICAL HISTORY: fall COMPARISON STUDY: No previous studies for comparison. CT DOSE: TECHNIQUE: CT scan of the cervical spine was performed from the skull base to the thoracic inlet. Susan ges are reviewed in the axial, sagittal, and coronal planes. IV contrast was not administered for thi s examination. A dose lowering technique was utilized adhering to the principles of ALARA. FINDINGS: The visualized portions of the lung apices reveal no evidence of pneumothorax on the left. There is q uestionable structure with frothy and gas collection between the trachea and vertebral body within th oracic inlet likely representing status post esophagectomy and pull-through procedure. There is possi enid small portion of visualized right lung parenchyma which shows no evidence of pneumothorax. The prevertebral soft tissues are normal. No fractures or subluxations are visualized. Diffuse osteopenia, multilevel heavy anterior osteophytes are seen. Multilevel degenerative changes are seen. Mild stenosis of the central canal is seen at the C6-C7 lev el. Prominent hypertrophic changes of facet joints are seen causing neural foraminal stenosis at mult iple levels bilaterally. IMPRESSION: No acute fracture or traumatic malalignment. Limited exam due to diffuse severe osteopenia. Multilevel degenerative changes as detailed above. Other findings as detailed above. ACT 112: Negative or not required by law. The above report was generated using voice recognition software. It may contain grammatical, syntax o r spelling errors. Electronically signed by: Malathi Segura DO 05/02/2021 12:46 PM
[2021-05-02] MEDS ORDERED: HEPARIN (PORCINE) 1000 UNIT/ML 10 ML (CATH LAB USE ONLY) ONE (12:49)
[2021-05-02] MEDS ORDERED: niCARdipine HCL INJ 2.5 MG/ML 10 ML AMP ONE (12:49)
[2021-05-02] MEDS ORDERED: fentaNYL citrate 100 MCG/2 ML VIAL ONE (12:49)
[2021-05-02] MEDS ORDERED: MIDAZOLAM HCL 1 MG/ML 2ML VIAL ONE (12:49)
[2021-05-02] MEDS ORDERED: NITROGLYCERIN/D5W 100MCG/ML 20ML SYR ONE (12:50)
--- NOTE | 2021-05-02 12:56 | CT Scan Report ---
CT SCAN OF THE ABDOMEN AND PELVIS WITHOUT CONTRAST CLINICAL HISTORY: syncope COMPARISON STUDY: No previous studies for comparison. TECHNIQUE: CT scan of the abdomen and pelvis was performed from the lung bases to the proximal femurs . Images are reviewed in the axial, sagittal, and coronal planes. IV contrast was not administered fo r this examination. A dose lowering technique was utilized adhering to the principles of ALARA. CT DOSE: 1555.26 mGy.cm FINDINGS: Lower chest: Patchy areas of groundglass attenuation is seen within dependent portions of bilateral l ower lobes which might represent atelectasis. 7 mm pulmonary nodule is seen adjacent to the minor fis sure on the right. Evaluation of lung parenchyma is significantly limited due to motion artifact. Gas filled partially visualized structure within lower chest cavity might represent significantly dilate d esophagus. Liver: The unenhanced liver is normal in size, contour, and attenuation. There is no intrahepatic theresa iary ductal dilatation. Gallbladder: Unremarkable. Spleen: Normal in size and attenuation. Pancreas: Is atrophic Adrenal glands: Unremarkable. Kidneys: The unenhanced kidneys are normal in size without hydronephrosis. There is no contour deform ing renal mass lesion. No renal calculi are identified. Bowel: Nondilated loops of bowel. Appendix is not well seen. Evaluation is limited due to lack of int ravenous contrast, motion artifact and beam hardening artifact from patient's arms. Large amount of s tool is seen within rectum likely representing fecal impaction. Peritoneum: There is no intraperitoneal free air or abdominal ascites. Vasculature: The abdominal aorta is normal in course and caliber. Scattered calcifications within aor tic wall are seen. Adenopathy: None. Pelvic viscera: Urinary bladder is adequately filled with urine. Prostate gland is not significantly enlarged. Skeletal structures: Severe diffuse osteopenia. Multilevel degenerative changes of the spine. Possibl e compression fracture deformity of L5 and, to 12 and T10. IMPRESSION: 1. Possibly significantly dilated esophagus. Stomach is seen within the abdomen. Please correlate ab ove-mentioned findings was prior history and gastroenterology evaluation. 2. Nondilated loops of bowel. Appendix is not well seen. Fecal impaction. 3. Atherosclerosis. 4. 7 mm pulmonary nodule within minor fissure on the right. Further evaluation with CT of the chest on nonemergency basis might be considered. 5. Multilevel compression fracture deformity of lumbar spine 6. The rest of findings as above. ACT 112: Positive. There are findings on this exam that require communication between the performing entity and the patient following Patient Test Result Information Act ([place] Act 112) guidelines. The above report was generated using voice recognition software. It may contain grammatical, syntax o r spelling errors. Electronically signed by: Malathi Segura DO 05/02/2021 12:55 PM
[2021-05-02 13:03] LABS: Albumin Level 3.6 gm/dl (3.4-5.0); BUN Creatinine Ratio 14.3 (10-20); Calcium 9.4 mg/dl (8.5-10.1); Creatinine Clr Calc Pharmacy 47.5 ml/min; Est GFR (African American) 56.5 ml/min; Est GFR (Non-African American) 48.7 ml/min; Potassium 3.7 mmol/L (3.5-5.1)
[2021-05-02 13:10] LABS: Bilirubin,Total 0.8 mg/dl (0.2-1); Globulin 3.6 gm/dl (2.5-4.0); Total Protein 7.2 gm/dl (6.4-8.2); Troponin I 3.38 ng/ml (0-0.045)
--- NOTE | 2021-05-02 13:44 | XRay Report ---
XR chest 1V portable CLINICAL HISTORY: Chest Pain COMPARISON STUDY: November 30, 2018 FINDINGS: No pneumothorax. No pleural effusion. Diffuse reticular prominence of pulmonary interstitium is seen bilaterally and worsening since prior study, associated with peribronchial cuffing and might represent pulmonary edema. Redemonstration of mediastinal widening which was also seen during prior study and might represent di lated esophagus. Cardiac silhouette is within upper limits of normal. Pulmonary vasculature is obscured.. Osseous structures: Degenerative changes of the spine. IMPRESSION: 1. Redemonstration of mediastinal widening which was partially visualized on CT of the cervical spin e and might represent dilated esophagus. Please correlate above-mentioned findings with prior history . 2. Diffuse reticular prominence of pulmonary interstitium and peribronchial cuffing might represent pulmonary edema or bronchitis. ACT 112: Negative or not required by law. The above report was generated using voice recognition software. It may contain grammatical, syntax o r spelling errors. Electronically signed by: Malathi Segura DO 05/02/2021 1:43 PM
[2021-05-02] MEDS ORDERED: HEPARIN 25000 UNIT/500 ML D5W IV ONE (13:56)
--- NOTE | 2021-05-02 14:32 | Cardiology Consultation ---
Date of Consultation May 02, 2021 Assessment & Plan (1) ST elevation (STEMI) myocardial infarction: Presentation consistent with high risk acute coronary syndrome and recommend proceeding with emergent cardiac catheterization and possible PCI. No apparent contraindications to procedure. Discussed risks, benefits, alternatives of procedure with patient and they are willing to proceed. Further recommendations pending findings of coronary angiography. History of Present Illness Attending Physician: Taye Rosas MD History of Present Illness 75-year-old man here with after syncopal event and ECG concerning for acute LA. Patient seen emergently in the ED after heart alert activated en route. No prior cardiac history. Cardiac risk factors include hypertension, dyslipidemia, carotid artery disease and family history of CAD/vascular disease (mother/father). Other medical issues include achalasia/GERD followed by ALIZA Wade. Today was feeling well, was up on a stepladder washing his car and next thing he remembers is being on the ground with his neighbor at his side. Denies any chest pain. Denies any preceding presyncope, palpitations or shortness of breath. ECG in the field showed anterolateral ST elevations. On arrival here was feeling well with no chest pain. Minimal residual anterolateral ST elevation. Transient A. fib with RVR into the 110s which resolved spontaneously. Of note does endorse exertional chest/back pain relieved with rest over the last month. Thought symptoms were secondary to his prior achalasia. 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 Daughter is a nurse at [facility] [facility] ED. Denies significant tobacco use or alcohol. Allergies Allergy/AdvReac Type Severity Reaction Status Date / Time No Known Drug Allergies Allergy Verified 11/30/20 10:39 pollen extracts Allergy Verified 11/30/20 10:39 latex AdvReac Unknown "BURNING Verified 11/30/20 10:39 SENSATION AT THE DENTIST" Home Medications Medication Instructions Recorded Confirmed Type aspirin 81 mg tablet,delayed 81 mg PO QAM 11/30/18 11/30/20 History release multivitamin 1 tab PO QAM 11/30/18 11/30/20 History atorvastatin 80 mg tablet 80 mg PO HS #90 tab 05/25/20 11/30/20 Rx esomeprazole magnesium 40 mg 40 mg PO HS #90 cap 05/25/20 11/30/20 Rx capsule,delayed release irbesartan 300 mg tablet 300 mg PO DAILY #90 tab 05/25/20 11/30/20 Rx sildenafil 100 mg tablet 100 mg PO DAILY PRN #10 tab 05/25/20 05/25/20 Rx amoxicillin 875 mg tablet 875 mg PO Q12H #20 tab 11/30/20 11/30/20 Rx fluconazole 100 mg tablet 100 mg PO .COMPLEX #20 tab 11/30/20 11/30/20 Rx Patient History Medical History Achalasia Anemia Basal cell carcinoma of skin Benign prostate hyperplasia Carotid artery stenosis, asymptomatic Chronic sinusitis Diverticulosis Dysphagia, pharyngeal phase Esophageal candidiasis Esophagus disorder Essential hypertension Hypercholesterolemia Impaired fasting glucose Internal hemorrhoids Male erectile disorder of organic origin Mitral regurgitation Rheumatic fever Tubular adenoma of colon (2018) Surgical History History of arthroscopy of left shoulder History of esophageal surgery History of vasectomy Status post biopsy of skin Status post unilateral inguinal hernia repair Family History Father Stroke syndrome Hyperlipidemia Mother Hypertension Mother Hypertension Sister Hypertension Other Family history non-contributory Social History Smoking Status: Never smoker Age Started Using Tobacco: 19; Age Quit Using Tobacco: 27; packs per day: 1; Years Smoked: 8; Cigarettes Per Day: 20; Number of Years Since Quit: 46; Second Hand Exposure: No; Hx Alcohol Use: Yes Alcohol type: hard liquor Alcohol Intake Frequency Comment: About 1 alcoholic drink per day. Hx Substance Use: No Preferred Language: Malaysian Visual Impairment: No Limitations Hearing Ability: Normal Beliefs That Will Affect Care: None marital status: Current Living Situation: Spouse current occupational status: retired How many Children do You have: 2 Feels Safe at Home: Yes Childhood Exposure to Second-Hand Smoke: Yes caffeine: Yes during the past year weight has: remained stable Dental Care, Regularly: Yes Physical Activity Frequency: 1-2 Times per Week Seatbelt Use: always Sunscreen Use: Yes Review of Systems Review of Systems: Not completed in the setting of emergent situation Physical Exam Physical Exam: General: Comfortable, no acute distress HEENT: Sclerae anicteric Lungs: Clear to auscultation bilaterally Cardiac: Regular rate and rhythm, no murmurs. Abdomen: Soft, nontender Extremities: Warm, well perfused, no edema. 2+ radial pulses Skin: No rashes or lesions. Neuro: Nonfocal Psych: Alert orient x3, normal affect and mood Results & Data ([facility] [place]) Vital Signs (Past 12 Hours) Vital Signs Temp Pulse Resp BP Pulse Ox 05/02/21 12:20 84 24 132/73 92 05/02/21 12:16 58 L 24 93 05/02/21 12:15 98.1 F 58 L 20 132/73 95 PG Care Time/CCT Total # of Minutes Spent Total Time Spent with Patient: Total time spent is greater than 50% in coordination of care (as documented) at patient's floor/unit and/or counseling patient: Coding Level of Care Code 87186 Inpt Consult Level [address] elevation (STEMI) myocardial infarction I21.3 Involved coronary artery: unspecified coronary artery (1) ST elevation (STEMI) myocardial infarction Involved coronary artery: unspecified coronary artery Qualified Code(s): I21.3 - ST elevation (STEMI) myocardial infarction of unspecified site
--- NOTE | 2021-05-02 14:33 | Pre Anesthesia Assessment ---
Date of Service May 02, 2021 Pre Sedation Assessment Vital Signs Temp Pulse Resp BP Pulse Ox 05/02/21 12:20 84 24 132/73 92 05/02/21 12:16 58 L 24 93 05/02/21 12:15 98.1 F 58 L 20 132/73 95 Cardiovascular RRR, no murmur, no edema Respiratory normal respiratory effort, lungs clear to auscultation Pre-Sedation Airway Assessment Smoking Status: Never smoker Hx Sleep Apnea: No Hx Difficult Intubation: No Short, Thick Neck: No Thyromental Distance: > or= 3.5 Finger Breadths Oral Cavity: + WNL Mallampati Class: III ASA: ASA4 Procedure Planning Contraindications for Sedation: none Current Medications Reviewed: Yes Notes The planned sedation has been discussed with the patient. Informed Consent was obtained. I have identified the patient, determined the appropriateness of sedation and have assessed the patient immediately prior to the procedure. All medicine(s) and interventions are by my order.
--- NOTE | 2021-05-02 14:34 | Post Anesthesia Assessment ---
Date of Service May 02, 2021 Post Sedation Assessment Vital Signs Temp Pulse Resp BP Pulse Ox 05/02/21 12:20 84 24 132/73 92 05/02/21 12:16 58 L 24 93 05/02/21 12:15 98.1 F 58 L 20 132/73 95 Recovery Score Activity: Moves 4 extremities Respiration: Deep Breath/Cough Circulation: +/-20% PreAnes Value Consciousness: Fully Awake Oxygen Saturation: O2 needed for >90% Discharge Sedation Level of Care: Fast Track Phase II Post Sedation Plan On clinical assessment, the patient appears to have tolerated the sedation without complications. Patient is recovering as anticipated. Patient will continue to be monitored by nursing and may be discharged when sedation discharge criteria are met per below protocol. Upon Completions of procedure up to 15 minutes continue every 5 minute vital signs and the P.A.R. score; then discharge to a Phase I or Fast Track to Phase II per the following guidelines: * Discharge Patient to appropriate Phase II area if PAR is 8 or greater or return to pre- procedure baseline. The post - procedure orders will be as directed. * If PAR score is less than 8 or not return to pre-procedure baseline then patient will follow Phase I monitoring till PAR is reached for Phase II. The Phase I may be done in procedure room or may call to secure a Phase I area. * If naloxone or flumazenil are used for reversal, hold in Phase I for continued monitoring from when last reversal dose was given for a minimum of 60 minutes or longer pending the nurse and/or physician discretion of patient condition before discharge to Phase II. Please call the Sedation Physician to re-evaluate and complete post-note for discharge to Phase II area. Do NOT discharge from procedure sedation or Phase 1 until post- sedation evaluation note is complete by procedure /sedation MD Sedation Discharge Instructions to be given to the patient at discharge to home.
--- NOTE | 2021-05-02 14:45 | Cardiac Catheterization ---
[employer] Data: [employer] Cardiac Status Clinical evaluation leading to the procedure CAD Presenation: STEMI Anginal Classification: CCS IV Heart Failure: No Cardiogenic Shock within 24 Hours: No Cardiac Arrest within 24 Hours: No Imaging Studies Past 6 Months: No Stress Studies Past 6 Months: No Diagnostic Physicians Name: Taye Rosas MD Closure Device Percutaneous Entry Location: Radial Closure Device: Radial Band Recommendations: CABG Intraprocedure Events Significant Disection: No Perforation: No Cardiac Cath Procedure Full Procedure Date May 02, 2021 Pre-Procedure Diagnosis Pre-Procedure Diagnosis: STEMI AUC Score AUC Score: 9 Post-Procedure Diagnosis Post-Procedure Diagnosis: Severe CAD and Normal Intracardiac Pressures Procedure(s) Performed Procedure(s) Performed: Coronary Angiography, Left Heart Cath, IABP and Ultrasou nd Guided Vascular Access Mems Device Scientist Taye Rosas MD Medical Administrator(s) Kody Estimated Blood Loss Estimated Blood Loss: 15 Medication(s) Medication(s): Fentanyl, Heparin, Lidocaine 1%, Nicardipine, Nitroglycerin and Versed Summary of Findings Indication: Transient anterolateral ST elevations, NSTEMI, syncope Access: 6 Fr right radial artery, 8 Fr right common femoral artery under ultrasound guidance Catheters: [place] Findings: LM -medium caliber, 95% distal stenosis at bifurcation with acute thrombus LAD -calcified, 99% ostial stenosis, 40% lateproximal stenosis at takeoff of small first diagonal, 60% mid stenosis, distal vessel without significant disease and wraps around apex. Circumflex -95% ostial, 50% mid, large OM 2 without significant disease. RCA -dominant, moderate caliber, mild diffuse mid segment disease, 50% distal RCA stenosis, small right PDA without disease. LVEDP -16 IABP placement Right MINESWEEPING OFFICER accessed under ultrasound guidance with placement of 6 Fr sheath Sheath exchanged for 8 Fr sheath Josue 50 cc balloon pump placed to descending aorta Augmenting pressures to 130s on 1:1 Arterial Closure: TR band Summary: 1. Severe left main coronary artery disease extending into ostial LAD/circumflex -95% distal left main at bifurcation 2. Multivessel CAD 99% ostial LAD, 60% mid LAD 95% ostal LCx, 50% mid circumflex 50% distal RCA 3. Borderline intracardiac filling pressure 4. Successful IABP placement Recommendations: Transfer to [facility] for CABG evaluation. Hemodynamics Rest Ao:: 103/61/84 Final Ao: 113/69/87 LV: 111/16 Recommendations Recommendations: CABG Specimens Specimens: None Radiation Exposure (mGy) 696 Contrast (mls) 40 Fluids (cc crystalloids) Fluids (cc crystalloids): 75 Drains Drains: None Anesthesia Moderate Procedural Complication(s) None Disposition [facility] I attest to the content of the Intraoperative Record and any orders documented therein. Any exceptions are noted below. [facility] Card Cath Procedure Codes Cardiac Catheterization Procedure 1: Cardiovascular Cath Procedures: 32446 Coronaries and LHC (+/-LV) Therapeutic Services & Ancillary Proc Procedure 1: Cardiovascular Tx and Anc Procedures: 80163 Ultrasonic Guidance Vascular Access Procedure 2: Cardiovascular Tx and Anc Procedures: 80541 IABP Insertion Moderate Sedation Procedure 1: Sedation/Anesthesia: 18480 Mod Sedation by the same physician;Init15 Min Child Age 5 & Up PG Care Time/CCT Total # of Minutes Spent Total Time Spent with Patient: Total time spent is greater than 50% in coordination of care (as documented) at patient's floor/unit and/or counseling patient:
--- NOTE | 2021-05-02 14:53 | XCELERA ---
[id number]
--- NOTE | 2021-05-02 14:58 | Discharge Summary ---
Date of Service May 02, 2021 Admission HPI Per Admitting Provider 75-year-old man here with after syncopal event and ECG concerning for acute TN. Patient seen emergently in the ED after heart alert activated en route. No prior cardiac history. Cardiac risk factors include hypertension, dyslipidemia, carotid artery disease and family history of CAD/vascular disease (mother/father). Other medical issues include achalasia/GERD followed by [facility], ALIZA. Today was feeling well, was up on a stepladder washing his car and next thing he remembers is being on the ground with his neighbor at his side. Denies any chest pain. Denies any preceding presyncope, palpitations or shortness of breath. ECG in the field showed anterolateral ST elevations. On arrival here was feeling well with no chest pain. Minimal residual anterolateral ST elevation. Transient A. fib with RVR into the 110s which resolved spontaneously. Of note does endorse exertional chest/back pain relieved with rest over the last month. Thought symptoms were secondary to his prior achalasia. 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 Daughter is a nurse at [employer] ED. Denies significant tobacco use or alcohol. Discharge Data Consultations 05/02/21 12:32 Consult Cardiac Catheterization Stat 05/02/21 14:03 Consult Sourcing Manager Routine Procedures Performed Operation Date: 05/02/21 13:00 Actual Procedures p Cath, Left with Cors and Vent - Alexis Rosas MD s Cineradiography w/Routine Exam - Alexis Rosas MD s Intra-Aortic Balloon Insertion - Alexis Rosas MD s Ultrasound Vascular Access - Alexis Rosas MD Hospital Course (1) ST elevation (STEMI) myocardial infarction: Patient taken urgently for cardiac catheterization. He was found to have 95% distal left main disease at bifurcation extending into ostial LAD and circumflex with apparent acute thrombus. IABP placed. Patient remained chest pain-free, hemodynamically and electrically stable. Patient to be transferred to [facility] for cardiac surgery evaluation and likely CABG. Dr. Adams accepting physician. Coding Level of Care Code D/C DAY MANAGEMENT <[address] elevation (STEMI) myocardial infarction I21.3 Involved coronary artery: unspecified coronary artery
--- NOTE | 2021-05-03 08:30 | Electrocardiogram Report ---
Test Reason : Blood Pressure : / mmHG Vent. Rate : 059 BPM Atrial Rate : 060 BPM P-R Int : 000 ms QRS Dur : 100 ms QT Int : 446 ms P-R-T Axes : 000 -59 -10 degrees QTc Int : 441 ms Junctional rhythm Incomplete right bundle branch block Left anterior fascicular block Acute Anteroseptal infarct Acute Lateral infarct Abnormal ECG When compared with ECG of 30-NOV-2018 09:08, Acute infarcts now present Confirmed by Sergio Casillas ([id number]) on 05/03/2021 8:29:31 AM Referred By: REFERRED SELF Confirmed By:Sergio Casillas
--- NOTE | 2021-05-03 08:31 | Electrocardiogram Report ---
Test Reason : Blood Pressure : / mmHG Vent. Rate : 076 BPM Atrial Rate : 104 BPM P-R Int : 000 ms QRS Dur : 104 ms QT Int : 388 ms P-R-T Axes : 000 -57 112 degrees QTc Int : 436 ms Atrial fibrillation with a competing junctional pacemaker Left anterior fascicular block Serial changes of evolving Septal infarct Abnormal ECG When compared with ECG of 02-MAY-2021 12:15, Atrial fibrillation has replaced Junctional rhythm ST no longer elevated in Anterior leads ST elevation in Lateral leads no longer present Confirmed by Sergio Casillas ([id number]) on 05/03/2021 8:31:29 AM Referred By: REFERRED SELF Confirmed By:Sergio Casillas
== END 2021-05-02 14:58 | disposition short-term general hospital (02) | DRG 272 ==
LOC: ED 12:13 → CC 13:15 → 1E 14:02

== ENCOUNTER 2023-03-01 10:30 | Inpatient (IN) ==
--- NOTE | 2023-02-22 13:31 | PAT Medication Instructions ---
Medication Instructions Date of Service February 22, 2023 Home Medications Medication Instructions Recorded atorvastatin 80 mg tablet 80 mg PO HS #90 tabs 12/08/22 esomeprazole magnesium 40 mg 40 mg PO QPM #90 caps 12/08/22 capsule,delayed release (Nexium) sildenafil 100 mg tablet 100 mg PO UD PRN sexual activity 12/08/22 #10 tabs multivitamin 1 tab PO QAM atorvastatin 80 mg tablet 80 mg PO HS esomeprazole magnesium 40 mg capsule,delayed release (Nexium) 40 mg PO QPM sildenafil 100 mg tablet 100 mg PO UD PRN sexual activity rivaroxaban 20 mg tablet 20 mg PO QPM aspirin 81 mg tablet,delayed release (Adult Low Dose Aspirin) 81 mg PO QAM clopidogrel 75 mg tablet (Plavix) 75 mg PO DAILY ezetimibe 10 mg tablet (Zetia) 5 mg PO QAM amlodipine 5 mg tablet 5 mg PO QAM hydrochlorothiazide 25 mg tablet 25 mg PO QAM irbesartan 300 mg tablet 300 mg PO QAM ASK your prescriber and surgeon rivaroxaban 20 mg tablet 20 mg PO QPM aspirin 81 mg tablet,delayed release (Adult Low Dose Aspirin) 81 mg PO QAM clopidogrel 75 mg tablet (Plavix) 75 mg PO DAILY STOP taking 24 hours before surgery sildenafil 100 mg tablet 100 mg PO UD PRN sexual activity DO NOT take the morning of surgery multivitamin 1 tab PO QAM hydrochlorothiazide 25 mg tablet 25 mg PO QAM irbesartan 300 mg tablet 300 mg PO QAM Take morning of surgery With a small sip of water, OTHERWISE NOTHING TO EAT OR DRINK AFTER MIDNIGHT: ezetimibe 10 mg tablet (Zetia) 5 mg PO QAM amlodipine 5 mg tablet 5 mg PO QAM Take evening before surgery atorvastatin 80 mg tablet 80 mg PO HS esomeprazole magnesium 40 mg capsule,delayed release (Nexium) 40 mg PO QPM Other Notes If you have any questions please call us at [phone] or [phone] or [phone] or [phone]
--- NOTE | 2023-02-23 11:13 | Anesthesiology Consultation ---
Date of Service February 23, 2023 Assessment & Plan (1) Encounter for pre-operative examination: - anesthesia reaction: violent reaction post-op. - cardiology clearance 02/20/23 [place]: "...Stable from a cardiac standpoint. Remains active, exercising regularly without exertional symptoms. On exam today no signs of heart failure or new PVD. Blood pressure reasonably controlled. Plan to continue ASCVD secondary prevention including current statin/Zetia and antihypertensives (ARB, thiazide, CCB). Continue current Xarelto for AF. Patient planning to undergo TCAR with vascular surgery. Will defer additional antiplatelet therapy to them post stenting. From a cardiac standpoint patient relatively low risk for planned vascular surgery and okay to proceed without additional cardiac testing. Xarelto can be held for 72 hours prior to procedure if needed..." - pulmonology 01/26/23 [place]: "...Multiple pulmonary nodules. Largest being 6 mm in the right lower lobe appreciated on CT chest 12/2021. In the patient was in the 8-pack-year smoking history quit in 1973. Would be considered low risk. Patient denies any B type symptoms...repeat a CT chest in 1 year, if on the repeat CT chest the nodules are stable then no more CAT scans going forward. CT chest 11/22/2022 personally reviewed: Gastric pull-through procedure with debris within. Right lower lobe peripheral 6 mm pulmonary nodule, left lower lobe two 5 mm pulmonary nodules (unchanged 12/2019). No mediastinal lymphadenopathy-- Chronic cough Likely secondary to esophagectomy status post gastric pull-up. Possible aspiration with reflux --> continue with Nexium. Advised the patient to eat slowly and in small portions..." Chart Review Chart Review: Acceptable Risk for Surgery and Patient seen in Pre Admission Testing Teaching & Discussion Pre-Anesthesia Teaching/Discussion Notes: Instructed NPO after midnight before surgery, except medications with 15 cc of water. Medication instructions provided according to the PAT guidelines. History Surgery Operation Date: 03/01/23 11:50 Proposed Procedures p Right Transcarotid Artery Revascularization - Norbert Whitehead MD Height/Weight Height: 5 ft 9 in Weight: 68.039 kg Allergies Allergy/AdvReac Type Severity Reaction Status Date / Time pollen extracts Allergy Unknown IN THE Verified 02/22/23 12:46 SPRING, ITCHY EYES, RUNNY NOSE No Known Drug Allergies Allergy Verified 02/22/23 12:46 latex AdvReac Unknown "BURNING Verified 02/22/23 12:46 SENSATION AT THE DENTIST" Medications Home Medications Medication Instructions Recorded Confirmed Last Taken multivitamin 1 tab PO QAM 11/30/18 02/22/23 05/10/22 atorvastatin 80 mg tablet 80 mg PO HS #90 tabs 12/08/22 02/22/23 Unknown esomeprazole magnesium 40 mg 40 mg PO QPM #90 caps 12/08/22 02/22/23 Unknown capsule,delayed release (Nexium) sildenafil 100 mg tablet 100 mg PO UD PRN sexual activity 12/08/22 02/22/23 Unknown #10 tabs rivaroxaban 20 mg tablet 20 mg PO QPM 01/11/23 02/22/23 Unknown aspirin 81 mg tablet,delayed 81 mg PO QAM 02/20/23 02/22/23 Unknown release (Adult Low Dose Aspirin) ezetimibe 10 mg tablet (Zetia) 5 mg PO QAM 02/20/23 02/22/23 Unknown amlodipine 5 mg tablet 5 mg PO QAM 02/22/23 02/22/23 Unknown hydrochlorothiazide 25 mg tablet 25 mg PO QAM 02/22/23 02/22/23 Unknown irbesartan 300 mg tablet 300 mg PO QAM 02/22/23 02/22/23 Unknown Brilinta 75 mg PO BID 02/23/23 02/23/23 Unknown Past Medical History Medical History (Updated 02/23/23 @ 11:39 by Maribel Carvalho PA-C) Achalasia Afib on anticoagulation Basal cell carcinoma of skin HX / 20 YR AGO Benign prostate hyperplasia CAD (coronary artery disease) s/p CABG x 2 04/2021 Carotid artery stenosis, asymptomatic > 70% occlusion R ICA, upcoming R CEA Essential hypertension variable History of anesthesia reaction TEND TO SWING AT PEOPLE WHEN WAKING UP FROM ANESTHESIA History of cardiac murmur History of gastric ulcer History of myocardial infarction 2020...CATH...BYPASS SX Hypercholesterolemia Internal hemorrhoids HX Ischemic cardiomyopathy EF 50%, recovered from 25-30% Male erectile disorder of organic origin Pulmonary hypertension Mild pulmonary hypertension, Est PASP 40-45 mmHg-09/2021 echo Pulmonary nodules annual CT @ [place] Rheumatic fever HX Tubular adenoma of colon (2017) HX / BENIGN Patient denies h/o stroke, seizures, DM, blood clots or blood transfusions. Exercise / Class Metabolic Activity II 4-5 Yardwork/Stairs/Walk up hill (denies chest discomfort or shortness of breath with 1 FOS) Past Family History Family History Father Stroke syndrome Hyperlipidemia Mother Hypertension Mother Hypertension Sister Hypertension Aunt Breast cancer Other Family history non-contributory Denies family history of Prostate cancer Colorectal cancer Past Surgical History Surgical History History of arthroscopy of left shoulder History of cardiac cath PRIOR TO HEART BYPASS - [facility] History of colonoscopy History of endoscopy History of esophageal surgery POEM APPROX 5 YR AGO History of heart bypass surgery 1 YR AGO , APRIL 2021 - [place] History of left cataract surgery "Patient bradycardic with what appears to be junctional rhythm in 30's, BP stable, patient up to chair at bedside without issues, denies lightheadedness/palpitations. Patient states he's always had HR in 40s at rest. Last EKG shows Aflutter with junctional rhythm at last cardiology appointment..." History of right cataract surgery History of vasectomy Status post biopsy of skin Status post unilateral inguinal hernia repair Past Anesthesia History No Family Hx of Anesthesia Complications and Other (violent action post-op) History of PONV No Hx of PONV and No Hx of Motion Sickness Social History Smoking Status: Former smoker tobacco type: cigarettes and pipe Do You Dip or Chew Tobacco: No Hx Alcohol Use: Yes Alcohol type: hard liquor alcohol intake frequency: 0-2 drinks per day (1 bourbon and coke) Hx Substance Use: No substance use type: does not use Review of Systems Patient denies chest pain, shortness of breath, dyspnea on exertion, snoring, witnessed apneas, fever, chills, cough, wheezing, or palpitations. Physical Exam Vital Signs Vitals BP 167/75 P 49 TEMP 97.8 SP02 100% on RA RESP 17 Physical Full cervical extension range of motion without pain TMD 3.5 finger breadths Mallampati Score 3 Dentition: multiple crowns, denies chipped or loose teeth, caps, implants or bridges Lungs: normal respiratory effort. Good air movement, clear throughout to auscultation, no adventitious breath sounds Cardiac: regular rate and rhythm, no murmurs noted Lab Results Anesthesia Preop Results Results Anesthesia Widget: WBC 5.62 K/ul (4.8-10.8) 02/23/23 Hgb 12.9 g/dl (14.0-18.0) L 02/23/23 Hct 35.6 % (42.0-52.0) L 02/23/23 Plt 157 K/uL (130-400) 02/23/23 Na 138 mmol/L (136-145) 02/23/23 K 4.2 mmol/L (3.5-5.1) 02/23/23 Cl 103 mmol/L (98-107) 02/23/23 CO2 25 mmol/L (21-32) 02/23/23 BUN 20 mg/dl (6-23) 02/23/23 Creat 1.01 mg/dl (0.6-1.4) 02/23/23 Glucose Level 116 mg/dl (70-99(Fasting)) H 02/23/23 PT 17.7 Seconds (9.0-12.0) H 02/23/23 PTT 35.6 Seconds (21.0-31.0) H 02/23/23 INR 1.7 (0.9-1.1) H 02/23/23 HA1c 6.0 % (4.5-5.6) H 01/04/23 Blood Type A Positive 02/23/23 Antibody Screen NEGATIVE 02/23/23 Testing Electrocardiogram Date: 02/23/23 Sinus rhythm with 2nd degree AV block (Mobitz I), rate 47 bpm Echocardiogram Date: 09/08/21 EF 50-55% Abnormal septal motion consistent with post-operative state/conduction abnormality Mild cLVH Mild mitral regurgitation Mild pulmonary hypertension, Est PASP 40-45 mmHg Cardiac Catheterization Date: 05/02/21 LM -medium caliber, 95% distal stenosis at bifurcation with acute thrombus LAD -calcified, 99% ostial stenosis, 40% lateproximal stenosis at takeoff of small first diagonal, 60% mid stenosis, distal vessel without significant disease and wraps around apex. Circumflex -95% ostial, 50% mid, large OM 2 without significant disease. RCA -dominant, moderate caliber, mild diffuse mid segment disease, 50% distal RCA stenosis, small right PDA without disease. 1. Severe left main coronary artery disease extending into ostial LAD/circumflex -95% distal left main at bifurcation 2. Multivessel CAD 99% ostial LAD, 60% mid LAD 95% ostal LCx, 50% mid circumflex 50% distal RCA 3. Borderline intracardiac filling pressure 4. Successful IABP placement Recommendations: Transfer to [facility] for CABG evaluation. Other Testing Neck CTA 01/25/23 Greater than 70% occlusion of the right ICA, minimally progressed from prior exam. Nonhemodynamically significant stenosis in the left ICA. Additional findings as above. Assessment of stenosis of the internal carotid arteries is based on NASCET criteria. Chest CT 11/22/22 1. No change in multiple small pulmonary nodules since chest CT of December 16, 2021. These are probably benign. Follow up chest CT in one year to ensure continued stability is recommended. 2. No change in a markedly dilated esophagus which contains ingested contents. This may reflect achalasia. COVID-19 Risk Screen Screening Information COVID-19 Screen Date: 02/23/23 Exposure 21 Days Family/Household +COVID Last 21 Days: No Exposure 10 Days Any COVID Exposure Last 10 Days: No Symptoms Last 10 Days Experienced COVID Sx Last 10 Days: No + COVID 0-90 Days COVID + in Last 0-90 Days: No
--- NOTE | 2023-02-28 15:07 | History & Physical Report ---
Date of Service February 28, 2023 History of Present Illness Primary Care Provider: Taye Rm MD Name: ADAM CASTILLO Patient Number: [id number] : 1945 Date of Service: 02/16/2023 REQUESTING PHYSICIAN'S NAME: MD Charley Norbert Naheed REASON FOR CONSULTATION: _Right internal carotid artery stenosis ASSESSMENT: _Severe stenosis of the right internal carotid artery PLAN: _ This point patient is asymptomatic from carotid disease however he does have a severe greater than 90% narrowing of his right internal carotid artery. We went over the risks options and benefits of intervention on this tight stenosis. He understood the risks options and benefits of both endarterectomy versus TCAR and has elected to go ahead with the TCAR procedure. He is seeing his actuarial science professor on Monday for follow-up visit. He says right now he is under a lot of stress and concern for his who is early dementia and will call our office early next week to arrange the TCAR procedure. He is not on any aspirin or Plavix. Both were started today and he will continue both of these as well as his statin if he elects to go ahead with the TCAR. Thank you very much for letting us dissipate in care of this patient. Sincerely, Deisy Whitehead MD Hospital Day: 0 Surgical Hospital Day/Procedure: No procedures found No diagnoses found Past Medical History: Problems: Carotid stenosis, bilateral Seborrheic keratoses Abdominal distension Weight disorder Arthritis Heart burn Kidney stones Transient acantholytic dermatosis Elevated cholesterol Reflux HTN (hypertension) Rotator cuff syndrome Shoulder pain Actinic keratosis History of basal cell cancer SUBJECTIVE: _I had the pleasure of seeing Armando today for evaluation of his carotid disease. As you know he is a 77-year-old gentleman who is being followed for carotid disease in the past. He recently had a CT angiogram which showed a greater 90% narrowing of his right internal carotid artery. He is asymptomatic at this point. He has no complaints of weakness paresthesias or amaurosis fugax. He does have a history of coronary occlusive disease with bypass done in 2020. He also has history of hypertension hyperlipidemia and prediabetes. His other complaints is a problem with achalasia where he is followed by GI at [place]. OBJECTIVE: _ Vitals: Last Updated 05/11/23 09:41 Weights: Last Updated 02/16/23 09:40 Date Temp Pulse BP RR SpO2 FIO2 Date Wt(kg) Wt(lb) 02/16 09:41 158/80 02/16 09:40 69.7 153 02/16 09:40 56 166/82 99 02/16 09:40 69.7 153 24 Hr Tmax: No Data Available 36 Hr Tmax: No Data Available Vital Signs are the last 5 in the past 48 hours. Weights display the last 5 within 7 days. Initial Wt: 02/16 69.7 kg 153 lb No I and O Data Available Physical Exam: General: _Patient is awake alert and oriented x3. He is in no apparent distress. His blood pressure is 166/82 on the left and 158/80 on the right. HEENT: _ Heart: His heart had a regular rate and rhythm. There is a right carotid bruit auscultated. Chest: Lungs are clear to auscultation. Abdomen: _Abdominal exam is benign. I cannot appreciate a widened pulse. Extremity: _He is got normal upper and lower extremity pulses. No ulcerations are noted of the upper or lower extremities. Neuro: _He is neurologically intact to motor and sensory function. Skin: _ Other: _ No 72hr Lab Data Radiologic Studies in last 48 hours: No orders found Active Inpt Meds: None Active PRN Meds: None One Time Meds: None Active IV Meds: None Signature Line Electronic Signature on File Electronically Reviewed/Signed by: Norbert Whitehead MD Author Signature Dt/Tm:02/16/2023 12:42 PM Channeler Insole Burt Miller [facility] [place], [address] [place], [place] [address] Result Type: Physician Consult Date of Service: February 16, 2023 12:34 EDT Authorization Status: Final Author or Import Date: MD Whitehead Eugene J on February 16, 2023 12:42 EDT Verified By: MD Whitehead Eugene J on February 16, 2023 12:42 EDT Encounter info: [id number], G [facility], Clinic, 02/16/2023 - 02/16/2023 Allergies Allergy/AdvReac Type Severity Reaction Status Date / Time pollen extracts Allergy Unknown IN THE Verified 02/22/23 12:46 SPRING, ITCHY EYES, RUNNY NOSE No Known Drug Allergies Allergy Verified 02/22/23 12:46 latex AdvReac Unknown "BURNING Verified 02/22/23 12:46 SENSATION AT THE DENTIST" Home Medications Medication Instructions Recorded Confirmed Type multivitamin 1 tab PO QAM 11/30/18 02/22/23 History atorvastatin 80 mg tablet 80 mg PO HS #90 tabs 12/08/22 02/22/23 Rx esomeprazole magnesium 40 mg 40 mg PO QPM #90 caps 12/08/22 02/22/23 Rx capsule,delayed release (Nexium) sildenafil 100 mg tablet 100 mg PO UD PRN sexual activity 12/08/22 02/22/23 Rx #10 tabs rivaroxaban 20 mg tablet 20 mg PO QPM 01/11/23 02/22/23 History aspirin 81 mg tablet,delayed 81 mg PO QAM 02/20/23 02/22/23 History release (Adult Low Dose Aspirin) ezetimibe 10 mg tablet (Zetia) 5 mg PO QAM 02/20/23 02/22/23 History amlodipine 5 mg tablet 5 mg PO QAM 02/22/23 02/22/23 History hydrochlorothiazide 25 mg tablet 25 mg PO QAM 02/22/23 02/22/23 History irbesartan 300 mg tablet 300 mg PO QAM 02/22/23 02/22/23 History Brilinta 75 mg PO BID 02/23/23 02/23/23 History Past Med/Surg History Medical History (Updated 02/23/23 @ 11:39 by Maribel Carvalho PA-C) Achalasia Afib on anticoagulation Basal cell carcinoma of skin HX / 20 YR AGO Benign prostate hyperplasia CAD (coronary artery disease) s/p CABG x 2 04/2021 Carotid artery stenosis, asymptomatic > 70% occlusion R ICA, upcoming R CEA Essential hypertension variable History of anesthesia reaction TEND TO SWING AT PEOPLE WHEN WAKING UP FROM ANESTHESIA History of cardiac murmur History of gastric ulcer History of myocardial infarction 2020...CATH...BYPASS SX Hypercholesterolemia Internal hemorrhoids HX Ischemic cardiomyopathy EF 50%, recovered from 25-30% Male erectile disorder of organic origin Pulmonary hypertension Mild pulmonary hypertension, Est PASP 40-45 mmHg-09/2021 echo Pulmonary nodules annual CT @ [place] Rheumatic fever HX Tubular adenoma of colon (2017) HX / BENIGN Surgical History History of arthroscopy of left shoulder History of cardiac cath PRIOR TO HEART BYPASS [facility] History of colonoscopy History of endoscopy History of esophageal surgery POEM APPROX 5 YR AGO History of heart bypass surgery 1 YR AGO , APRIL 2021 - [place] History of left cataract surgery "Patient bradycardic with what appears to be junctional rhythm in 30's, BP stable, patient up to chair at bedside without issues, denies lightheadedness/palpitations. Patient states he's always had HR in 40s at rest. Last EKG shows Aflutter with junctional rhythm at last cardiology appointment..." History of right cataract surgery History of vasectomy Status post biopsy of skin Status post unilateral inguinal hernia repair Family History Father Stroke syndrome Hyperlipidemia Mother Hypertension Mother Hypertension Sister Hypertension Aunt Breast cancer Other Family history non-contributory Denies family history of Prostate cancer Colorectal cancer Social History Smoking Status: Former smoker Age Started Using Tobacco: 19; Age Quit Using Tobacco: 27; packs per day: 1; Second Hand Exposure: No; Do You Dip or Chew Tobacco: No; Tobacco Cessation Education Requested by Patient: No Hx Alcohol Use: Yes Alcohol type: hard liquor Alcohol Intake Frequency Comment: About 1 alcoholic drink per day. Hx Substance Use: No Preferred Language: Macedonian Communication Ability: Effective Visual Impairment: No Limitations Hearing Ability: Normal Sas Programmer Required: No Beliefs That Will Affect Care: None marital status: Current Living Situation: Spouse current occupational status: retired current occupation: Retired How many Children do You have: 2 Feels Safe at Home: Yes Safety Concerns: Feels Safe At This Time Childhood Exposure to Second-Hand Smoke: Yes Diet: regular caffeine: Yes during the past year weight has: remained stable Dental Care, Regularly: Yes Physical Activity Frequency: 1-2 Times per Week Seatbelt Use: always Sunscreen Use: Yes Assistive Devices: Glasses
[~2023-03-01 10:30] MED LIST changes: +LACTATED RINGER'S 1,000 ML IV SCH; +PHENYLEPHRINE HCL 25 MG/250 ML NSS IV ONE; -SODIUM CHLORIDE 0.9% 500 ML IV STA; +ceFAZolin 2000MG 2,000 MG/15 ML SYR IV SCH
--- NOTE | 2023-03-01 12:45 | Communication Note ---
Date of Service: March 01, 2023 Patient found today to be in complete heart block with sinus rhytm. Can not do a TCAR with low heart rate. Will consult his content management consultant.
--- NOTE | 2023-03-01 16:08 | Electrocardiogram Report ---
Test Reason : Blood Pressure : / mmHG Vent. Rate : 039 BPM Atrial Rate : 066 BPM P-R Int : 000 ms QRS Dur : 114 ms QT Int : 570 ms P-R-T Axes : 000 -24 068 degrees QTc Int : 458 ms Sinus rhythm with complete heart block with junctional escape Cannot rule out Anterior infarct (cited on or before 01-MAR-2023) Abnormal ECG When compared with ECG of 23-FEB-2023 11:29, Significant changes have occurred Confirmed by Geoffrey Rice ([id number]) on 03/01/2023 4:08:32 PM Referred By: Norbert Whitehead Confirmed By:Geoffrey Rice
--- NOTE | 2023-03-01 17:21 | Communication Note ---
Date of Service: March 01, 2023 Patient in complete heart block,case cancelled. Pt to have pacemaker inserted by Dr Wilson.
[2023-03-01] MEDS: TICAGRELOR 90 MG TAB PO SCH (20:23)
[2023-03-01] MEDS: PANTOprazole 40 MG TAB PO SCH (20:24)
[2023-03-01] MEDS: ATORVASTATIN 40 MG TAB PO SCH (20:24)
--- NOTE | 2023-03-01 20:54 | History & Physical Report ---
Date of Service March 01, 2023 Assessment & Plan (1) Bradycardia: Plan: 2. CAD--post 2V CABG 04/2021 (WISDOM-LAD, SVG-OM) 3. Paroxysmal atrial fibrillation/Atrial flutter 4. Mitral regurgitationmild 09/2021 5. Hypertension 6. Dyslipidemia 7.Carotid artery stenosis> 70% BRANDON, asymptomatic Patient's TCAR postponed due to asymptomatic bradycardia to the 30s with A-V dissociation and junctional escape rhythm. This is not a new finding on review of prior ECGs but feel long-term would benefit from pacemaker and acutely will allow for planned TCAR. Discussed with Dr. Wilson who can place a permanent pacemaker tomorrow. Plan also discussed with Dr. Whitehead. We will admit to telemetry for observation. Repeat limited echo in a.m. to assess LV function. Check electrolytes, TFTs. N.p.o. past midnight. Continue home antihypertensives, statin. On DAPT preparation for TCAR. Admission and Anticipated Discharge Date Admission Date: March 01, 2023 History of Present Illness Primary Care Provider: Taye Rm MD Mr. 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 Patient previously had a CT of his neck which showed a >70% right ICA stenosis and was to undergo TCAR with Dr. Whitehead today. Noted to be bradycardic as low as the high 30s with telemetry showing complete heart block. With bradycardia patient asymptomatic, hemodynamically stable. Patient has a longstanding history of bradycardia. On follow-up visits after his CABG noted to be in asymptomatic bradycardic in the 40s with atrial flutter with slow ventricular response and has been maintained on Xarelto, off AV nilsa agents. Review of ECGs shows junctional bradycardia with A-V dissociation back to 05/11/2022. Other past medical history includes hypertension, Hypercholesterolemia, Impaired Fasting Glucose, Esophageal Achalasia. Cardiac history: Presented to [facility] ER on 05/02/2021 after sustaining a syncopal episode. He was on on a stepladder washing a car, and the next thing he knew he was lying on the ground with neighbor surrounding him. EKG in the field revealed anterior lateral ST elevations. In the ER transiently went into atrial fibrillation with a ventricular response rate 110-120 beats per minute range. Patient was taken urgently for cardiac catheterization and was noted to have a 95% distal left main stenosis, 99% ostial LAD stenosis. An intra-aortic balloon pump was placed, and patient was transferred to [facility] for CABG. His LVEF was 25% to 30% prior to his bypass surgery. Patient subsequently underwent CABG x 2 vessels on 05/03/2021 including WISDOM to LAD, and SVG to OM. Additionally he underwent a left atrial appendactomy. Patient tolerated the surgery well, but did have some atrial arrhythmias around the time of surgery. Postoperatively did well, participated with cardiac rehab, peak METS >5. Blood pressures initially elevated, improved on increased irbesartan. Had issues with lower extremity edema which improved with brief course of Lasix. Recent cardiac studies: Echo 09/2021mild LVH, LVEF 50 to 55%, mild MR, mild PH 40 to 45 mmHg, RA 8 mmHg Allergies Allergy/AdvReac Type Severity Reaction Status Date / Time pollen extracts Allergy Unknown IN THE Verified 03/01/23 11:08 SPRING, ITCHY EYES, RUNNY NOSE No Known Drug Allergies Allergy Verified 03/01/23 11:08 latex AdvReac Unknown "BURNING Verified 03/01/23 11:08 SENSATION AT THE DENTIST" Home Medications Medication Instructions Recorded Confirmed Type multivitamin 1 tab PO QAM 11/30/18 03/01/23 History atorvastatin 80 mg tablet 80 mg PO HS #90 tabs 12/08/22 03/01/23 Rx esomeprazole magnesium 40 mg 40 mg PO QPM #90 caps 12/08/22 03/01/23 Rx capsule,delayed release (Nexium) rivaroxaban 20 mg tablet (Xarelto) 20 mg PO QPM 01/11/23 03/01/23 History aspirin 81 mg tablet,delayed 81 mg PO QAM 02/20/23 03/01/23 History release (Adult Low Dose Aspirin) ezetimibe 10 mg tablet (Zetia) 5 mg PO QAM 02/20/23 03/01/23 History amlodipine 5 mg tablet 5 mg PO QAM 02/22/23 03/01/23 History hydrochlorothiazide 25 mg tablet 25 mg PO QAM 02/22/23 03/01/23 History irbesartan 300 mg tablet (Avapro) 300 mg PO QAM 02/22/23 03/01/23 History Brilinta 75 mg PO BID 02/23/23 03/01/23 History sildenafil 100 mg tablet (Viagra) 100 mg PO UD PRN sexual activity 03/01/23 03/01/23 History Past Med/Surg History Medical History (Updated 03/01/23 @ 21:17 by Alexis Rosas MD) Achalasia Afib on anticoagulation Basal cell carcinoma of skin HX / 20 YR AGO Benign prostate hyperplasia CAD (coronary artery disease) s/p CABG x 2 04/2021 Carotid artery stenosis, asymptomatic > 70% occlusion R ICA, upcoming R CEA Essential hypertension variable History of anesthesia reaction TEND TO SWING AT PEOPLE WHEN WAKING UP FROM ANESTHESIA History of cardiac murmur History of gastric ulcer History of myocardial infarction 2020...CATH...BYPASS SX Hypercholesterolemia Internal hemorrhoids HX Ischemic cardiomyopathy EF 50%, recovered from 25-30% Male erectile disorder of organic origin Pulmonary hypertension Mild pulmonary hypertension, Est PASP 40-45 mmHg-09/2021 echo Pulmonary nodules annual CT @ [place] Rheumatic fever HX Tubular adenoma of colon (2017) HX / BENIGN Surgical History History of arthroscopy of left shoulder History of cardiac cath PRIOR TO HEART BYPASS SX - [facility] History of colonoscopy History of endoscopy History of esophageal surgery POEM APPROX 5 YR AGO History of heart bypass surgery 1 YR AGO , APRIL 2021 - [facility] History of left cataract surgery "Patient bradycardic with what appears to be junctional rhythm in 30's, BP stable, patient up to chair at bedside without issues, denies lightheadedness/palpitations. Patient states he's always had HR in 40s at rest. Last EKG shows Aflutter with junctional rhythm at last cardiology appointment..." History of right cataract surgery History of vasectomy Status post biopsy of skin Status post unilateral inguinal hernia repair Family History Father Stroke syndrome Hyperlipidemia Mother Hypertension Mother Hypertension Sister Hypertension Aunt Breast cancer Other Family history non-contributory Denies family history of Prostate cancer Colorectal cancer Social History Smoking Status: Former smoker Age Started Using Tobacco: 19; Age Quit Using Tobacco: 27; packs per day: 1; Second Hand Exposure: No; Do You Dip or Chew Tobacco: No; Tobacco Cessation Education Requested by Patient: No Hx Alcohol Use: Yes Alcohol type: hard liquor Alcohol Intake Frequency Comment: About 1 alcoholic drink per day. Hx Substance Use: No Preferred Language: Frisian Communication Ability: Effective Visual Impairment: No Limitations Hearing Ability: Normal Thermite Bomb Loader Required: No Beliefs That Will Affect Care: None marital status: Current Living Situation: Spouse current occupational status: retired current occupation: Retired How many Children do You have: 2 Feels Safe at Home: Yes Safety Concerns: Feels Safe At This Time Childhood Exposure to Second-Hand Smoke: Yes Diet: regular caffeine: Yes during the past year weight has: remained stable Dental Care, Regularly: Yes Physical Activity Frequency: 1-2 Times per Week Seatbelt Use: always Sunscreen Use: Yes Assistive Devices: Glasses Review of Systems Review of Systems: All systems reviewed & are unremarkable except as noted in HPI & below Physical Exam Physical Exam: General: Comfortable HEENT: Sclerae anicteric Lungs: Clear to auscultation bilaterally, no crackles or wheezes Cardiac: Regular, bradycardic, occasional premature beats, no murmurs. Vascular: 2+ radial, no bruits. 2+ DP pulses Abdomen: Soft, nontender Extremities: Well perfused, no edema Neuro: Nonfocal Psych: Alert orient x3, normal affect and mood Results & Data Results & Data Vital Signs (Past 12 Hours) Vital Signs Temp Pulse Pulse Resp BP BP BP 03/01/23 18:00 37 L 19 03/01/23 16:01 47 L 12 03/01/23 16:01 134/75 03/01/23 16:00 37 L 16 03/01/23 15:01 39 L 14 03/01/23 15:01 161/52 H 03/01/23 14:34 37 L 16 03/01/23 12:23 39 L 20 145/59 H 03/01/23 11:34 97.9 F 34 L 18 162/55 H 146/96 H Pulse Ox O2 Del Method 03/01/23 18:00 03/01/23 16:01 03/01/23 16:01 03/01/23 16:00 03/01/23 15:01 98 Room Air 03/01/23 15:01 03/01/23 14:34 97 03/01/23 12:23 100 Room Air 03/01/23 11:34 100 Room Air Code Status & VTE Plan VTE Prophylaxis Plan VTE Prophylaxis will be ordered: Yes PG Care Time/CCT Total # of Minutes Spent Total Time Spent with Patient: Total time spent is greater than 50% in coordination of care (as documented) at patient's floor/unit and/or counseling patient: Coding Level of Care Code 75179 INT INP/OBS CARE 2/55MIN Diagnoses Bradycardia R00.1
[2023-03-02 05:24] LABS: Est GFR (Non-African American) 65.6 ml/min; Potassium 4.3 mmol/L (3.5-5.1)
[2023-03-02 05:25] LABS: Calcium 8.8 mg/dl (8.6-10.3); Creatinine Clr Calc Pharmacy 56.6 ml/min; Magnesium 1.7 mg/dl (1.7-2.4)
--- NOTE | 2023-03-02 08:27 | XCELERA ---
[id number]
[2023-03-02] MEDS: EZETIMIBE 10 MG TABLET PO SCH (08:28)
[2023-03-02] MEDS: hydroCHLOROthiazide 25 MG TAB PO SCH (08:28)
[2023-03-02] MEDS: ASPIRIN 81 MG ECTAB PO SCH (08:28)
[2023-03-02] MEDS: amLODIPine BESYLATE 5 MG TAB PO SCH (08:28)
[2023-03-02] MEDS: MULTIVITAMIN TAB PO SCH (08:29)
[2023-03-02] MEDS: LOSARTAN POTASSIUM 50 MG TAB PO SCH (08:29)
[2023-03-02] MEDS: TICAGRELOR 90 MG TAB PO SCH ×2 (08:29→20:40)
[2023-03-02] MEDS ORDERED: LOSARTAN POTASSIUM 50 MG TAB PO SCH (09:00)
[2023-03-02] MEDS ORDERED: LIDOCAINE 1% LOCAL 20 ML VIAL ONE (10:02)
[2023-03-02] MEDS ORDERED: WATER, STERILE FOR INJ 10 ML VIAL ONE (10:03)
[2023-03-02] MEDS ORDERED: BUPIVACAINE 0.25% PF 30 ML VIAL ONE (10:03)
[2023-03-02] MEDS ORDERED: VANCOMYCIN HCL 1000MG/20ML VIAL ONE (10:03)
--- NOTE | 2023-03-02 10:43 | Pre Anesthesia Assessment ---
Date of Service March 02, 2023 Pre Sedation Assessment Vital Signs Temp Pulse Pulse Resp BP BP BP 03/02/23 08:57 40 L 03/02/23 08:57 37.1 C 46 L 14 163/72 H 03/02/23 03:56 36.8 C 48 L 16 134/60 03/01/23 23:45 40 L 03/01/23 23:45 36.8 C 34 L 16 133/61 03/01/23 20:00 36.8 C 44 L 16 146/50 H 03/01/23 18:00 37 L 19 03/01/23 16:01 47 L 12 03/01/23 16:01 134/75 03/01/23 16:00 37 L 16 03/01/23 15:01 39 L 14 03/01/23 15:01 161/52 H 03/01/23 14:34 37 L 16 03/01/23 12:23 39 L 20 145/59 H 03/01/23 11:34 36.6 C 34 L 18 162/55 H 146/96 H Pulse Ox O2 Del Method 03/02/23 08:57 03/02/23 08:57 98 Room Air 03/02/23 03:56 98 Room Air 03/01/23 23:45 03/01/23 23:45 98 Room Air 03/01/23 20:00 98 Room Air 03/01/23 18:00 03/01/23 16:01 03/01/23 16:01 03/01/23 16:00 03/01/23 15:01 98 Room Air 03/01/23 15:01 03/01/23 14:34 97 03/01/23 12:23 100 Room Air 03/01/23 11:34 100 Room Air Cardiovascular + regular rhythm and + bradycardic Respiratory + respiratory effort normal Pre-Sedation Airway Assessment Smoking Status: Former smoker Hx Sleep Apnea: No Hx Difficult Intubation: No Short, Thick Neck: No Thyromental Distance: > or= 3.5 Finger Breadths Mallampati Class: III ASA: ASA3 Procedure Planning Contraindications for Sedation: none Current Medications Reviewed: Yes Notes The planned sedation has been discussed with the patient. Informed Consent was obtained. I have identified the patient, determined the appropriateness of sedation and have assessed the patient immediately prior to the procedure. All medicine(s) and interventions are by my order.
[2023-03-02] MEDS ORDERED: fentaNYL citrate PF 100 MCG/2 ML VIAL ONE (11:35)
[2023-03-02] MEDS ORDERED: MIDAZOLAM HCL 5 MG/ML 1 ML VIAL ONE (11:35)
--- NOTE | 2023-03-02 12:21 | Electrophysiology Report ---
Date of Service March 02, 2023 Electrophysiology Procedure Electrophysiology Procedure Report Procedure performed: Implantation of dual-chamber permanent pacemaker with left bundle pacing lead Staff plaster whittler: Taye Wilson MD Indication: the patient is a 77-year-old gentleman with a history of significant cardiac disease including prior surgical revascularization who presented for elective procedure was discovered to be in complete heart block. Patient had some associated bradycardia. Based on these features he is felt to be a good candidate for a permanent pacemaker due to symptomatic nonreversible AV node dysfunction. Dual-chamber device was selected as patient is currently in sinus rhythm which to maintain AV synchrony. Procedure in detail: The patient was informed of the risks benefits and alternatives to the intended procedure and she wished to proceed. She was taken to the electrophysiology suite in a fasting state. A preoperative antibiotic had been administered. The patient was monitored electrocardiographically throughout today's procedure and conscious sedation was administered per protocol. The left upper pectoral area is prepped and draped in usual sterile fashion. This area was anesthetized using subcutaneous administration of a xylocaine solution. An incision was made at this site and carried down to the prepectoralis fascia using sharp dissection. Electrocautery was also employed for dissection as well as for hemostasis. A d evice pocket was fashioned tissues above the pectoralis muscle. Subsequent to this maneuver the left axillary vein was accessed using modified Seldinger technique. Sheath was placed over guidewire this site used facilitate passage of the guiding catheter for mapping of the interventricular septum. Once an adequate site was identified the pacing lead was advanced into the intra ventricular septum. Adequate sensing and threshold parameters as well as pace morphology was monitored prior to removal of the guiding catheter. The proximal portion of the lead was then sutured to prepectoralis fascia using nonabsorbable suture. A sheath was placed over the remaining guidewire and used facilitate passage of a pacing lead to the right atrium under fluoroscopic guidance. Adequate sensing threshold parameters were obtained prior to active fixation of this lead to the endocardial surface. The proximal portion lead was then sutured to prepectoralis fascia using nonabsorbable suture. The device pocket was irrigated with antibiotic solution. The leads were then attached to the device. The device and leads were then placed in the pocket and pocket was closed in 3 layers of absorbable suture. Steri-Strips and sterile dressing were applied. The device was tested noninvasively prior to conclusion the procedure. The patient tolerated procedure well there no immediate complications. Equipment used: New pulse generator: [employer]. Model number: [id number] serial number [id number] Right atrial lead: [employer]. Model number: [id number] serial number [id number] Right ventricular lead: [employer]. Model number: [id number] serial number [id number] Measured data: Right atrial lead: P-waves measured 1.1 mV. Pacing threshold was 2.25 volts at 0.4 milliseconds with a pacing impedance of 494 Ohms Right ventricular lead: R-waves measured 15 mV. Pacing threshold was 0.5 volts at 0.4 milliseconds with a pacing impedance of 950 Ohms Impression: Successful implantation of dual-chamber permanent pacemaker with left bundle pacing lead [facility] Electrophysiology codes Pacing Procedure 1: Pacin Insert/Replace Pacer A & V PG Moderate Sedation Codes Moderate Sedation Codes Procedure 1: Sedation/Anesthesia: 86192 Mod Sedation by the same physician;Init15 Min Child Age 5 & Up Procedure 2: Sedation/Anesthesia: 67963 Mod Sedation by the same physician; Ea [id number] Minutes
[2023-03-02] MEDS ORDERED: oxyCODONE HCL IR 5 MG TAB (IMMEDIATE RELEASE) PO PRN (12:22)
[2023-03-02] MEDS ORDERED: ACETAMINOPHEN 325 MG TAB PO PRN (12:22)
--- NOTE | 2023-03-02 12:22 | Post Anesthesia Assessment ---
Date of Service March 02, 2023 Post Sedation Assessment Vital Signs Temp Pulse Pulse Resp BP BP Pulse Ox 03/02/23 08:57 40 L 03/02/23 08:57 37.1 C 46 L 14 163/72 H 98 03/02/23 03:56 36.8 C 48 L 16 134/60 98 03/01/23 23:45 40 L 03/01/23 23:45 36.8 C 34 L 16 133/61 98 03/01/23 20:00 36.8 C 44 L 16 146/50 H 98 03/01/23 18:00 37 L 19 03/01/23 16:01 47 L 12 03/01/23 16:01 134/75 03/01/23 16:00 37 L 16 03/01/23 15:01 39 L 14 98 03/01/23 15:01 161/52 H 03/01/23 14:34 37 L 16 97 03/01/23 12:23 39 L 20 145/59 H 100 O2 Del Method 03/02/23 08:57 03/02/23 08:57 Room Air 03/02/23 03:56 Room Air 03/01/23 23:45 03/01/23 23:45 Room Air 03/01/23 20:00 Room Air 03/01/23 18:00 03/01/23 16:01 03/01/23 16:01 03/01/23 16:00 03/01/23 15:01 Room Air 03/01/23 15:01 03/01/23 14:34 03/01/23 12:23 Room Air Recovery Score Activity: Moves 4 extremities Respiration: Deep Breath/Cough Circulation: +/-20% PreAnes Value Consciousness: Fully Awake Oxygen Saturation: > 92% On Room Air Discharge Sedation Level of Care: Fast Track Phase II Post Sedation Plan On clinical assessment, the patient appears to have tolerated the sedation without complications. Patient is recovering as anticipated. Patient will continue to be monitored by nursing and may be discharged when sedation discharge criteria are met per below protocol. Upon Completions of procedure up to 15 minutes continue every 5 minute vital signs and the P.A.R. score; then discharge to a Phase I or Fast Track to Phase II per the following guidelines: * Discharge Patient to appropriate Phase II area if PAR is 8 or greater or return to pre- procedure baseline. The post - procedure orders will be as directed. * If PAR score is less than 8 or not return to pre-procedure baseline then patient will follow Phase I monitoring till PAR is reached for Phase II. The Phase I may be done in procedure room or may call to secure a Phase I area. * If naloxone or flumazenil are used for reversal, hold in Phase I for continued monitoring from when last reversal dose was given for a minimum of 60 minutes or longer pending the nurse and/or physician discretion of patient condition before discharge to Phase II. Please call the Sedation Physician to re-evaluate and complete post-note for discharge to Phase II area. Do NOT discharge from procedure sedation or Phase 1 until post- sedation evaluation note is complete by procedure /sedation MD Sedation Discharge Instructions to be given to the patient at discharge to home.
--- NOTE | 2023-03-02 14:00 | Surgery Progress Note ---
Date of Service March 02, 2023 Assessment & Plan (1) Iliac artery aneurysm, right: Plan: This gentleman is postoperative day 1 from endovascular repair of a right common iliac artery aneurysm. He is doing extremely well. He will be discharged later today. Admission and Anticipated Discharge Date Admission Date: March 01, 2023 Subjective Patient is claiming to feel good. He has no complaints. He has no groin pain or foot pain or back pain. Physical Exam Constitutional: WD/WN, vitals as above Respiratory: normal respiratory effort, lungs clear to auscultation Cardiovascular: Rate/Rhythm: regular rate and regular rhythm Vessels: posterior tibial pulses present and dorsalis pedis pulses present Extremities: normal capillary refill Gastrointestinal (Abdomen): normal bowel sounds, soft, nontender, no hepatosplenomegaly Musculoskeletal: no cyanosis or clubbing, extremities motor strength 5/5 Skin: + incision (No complication of the groin. There is no hematoma or bleeding at this poi) Neurologic: CN's II-XI intact bilaterally and moves all extremities Psychiatric: Orientation: alert and oriented x 3 Results & Data Vital Signs (Past 12 Hours) Vital Signs Temp Pulse Pulse Resp BP BP BP 03/02/23 13:15 60 17 132/83 03/02/23 13:01 62 15 122/74 03/02/23 12:49 62 20 157/78 H 03/02/23 13:08 36.8 C 03/02/23 12:36 60 16 148/78 H 03/02/23 12:21 60 16 148/78 H 03/02/23 08:57 40 L 03/02/23 08:57 37.1 C 46 L 14 163/72 H 03/02/23 03:56 36.8 C 48 L 16 134/60 Pulse Ox O2 Del Method 03/02/23 13:15 03/02/23 13:01 03/02/23 12:49 98 Room Air 03/02/23 13:08 03/02/23 12:36 98 Room Air 03/02/23 12:21 98 Room Air 03/02/23 08:57 03/02/23 08:57 98 Room Air 03/02/23 03:56 98 Room Air
[2023-03-02] MEDS ORDERED: ceFAZolin 1000MG 1,000 MG/7.5 ML SYR IV ONE (19:00)
[2023-03-02] MEDS: ATORVASTATIN 40 MG TAB PO SCH (20:37)
[2023-03-02] MEDS: PANTOprazole 40 MG TAB PO SCH (20:37)
--- NOTE | 2023-03-03 07:40 | XRay Report ---
XR chest 2V PA/lateral CLINICAL HISTORY: EXACT TIME ORDERED Evaluate for pneumothorax/ COMPARISON STUDY: Chest CT November 22, 2022. FINDINGS: There is no pneumothorax following placement of a dual-lead left subclavian pacemaker. Lead tips project over the right appendage and the right ventricle. There are median sternotomy wires and mediastinal surgical clips. There is no evidence for pulmonary edema. Cardiomediastinal silhouette i s stable. Note is again made of a markedly dilated esophagus which contains ingested contents. IMPRESSION: No pneumothorax following placement of a dual-lead left subclavian pacemaker. ACT 112: Negative or not required by law. Electronically signed by: Luigi Whitmore M.D. 03/03/2023 7:39 AM
[2023-03-03] MEDS: TICAGRELOR 90 MG TAB PO SCH (07:44)
[2023-03-03] MEDS: EZETIMIBE 10 MG TABLET PO SCH (07:45)
[2023-03-03] MEDS: ASPIRIN 81 MG ECTAB PO SCH (07:45)
[2023-03-03] MEDS: MULTIVITAMIN TAB PO SCH (07:45)
--- NOTE | 2023-03-03 07:45 | Electrocardiogram Report ---
Test Reason : Blood Pressure : / mmHG Vent. Rate : 063 BPM Atrial Rate : 063 BPM P-R Int : 148 ms QRS Dur : 142 ms QT Int : 488 ms P-R-T Axes : 095 -74 090 degrees QTc Int : 499 ms AV dual-paced complexes and Atrial-sensed ventricular-paced rhythm with intrinsic complexes Abnormal ECG When compared with ECG of 01-MAR-2023 12:28, AV pacing is now present Vent. rate has increased BY 24 BPM Confirmed by Haim Ruffin ([id number]) on 03/03/2023 7:45:50 AM Referred By: Norbert Whitehead Confirmed By:Haim Ruffin
[2023-03-03] MEDS: hydroCHLOROthiazide 25 MG TAB PO SCH (07:47)
[2023-03-03] MEDS: amLODIPine BESYLATE 5 MG TAB PO SCH (07:47)
[2023-03-03] MEDS: LOSARTAN POTASSIUM 50 MG TAB PO SCH (07:47)
--- NOTE | 2023-03-03 09:35 | Discharge Summary ---
Date of Service March 03, 2023 Admission HPI Per Admitting Provider Mr. 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 Patient previously had a CT of his neck which showed a >70% right ICA stenosis and was to undergo TCAR with Dr. Whitehead today. Noted to be bradycardic as low as the high 30s with telemetry showing complete heart block. With bradycardia patient asymptomatic, hemodynamically stable. Patient has a longstanding history of bradycardia. On follow-up visits after his CABG noted to be in asymptomatic bradycardic in the 40s with atrial flutter with slow ventricular response and has been maintained on Xarelto, off AV nilsa agents. Review of ECGs shows junctional bradycardia with A-V dissociation back to 05/11/2022. Other past medical history includes hypertension, Hypercholesterolemia, Impaired Fasting Glucose, Esophageal Achalasia. Cardiac history: Presented to [facility] on 05/02/2021 after sustaining a syncopal episode. He was on on a stepladder washing a car, and the next thing he knew he was lying on the ground with neighbor surrounding him. EKG in the field revealed anterior lateral ST elevations. In the ER transiently went into atrial fibrillation with a ventricular response rate 110-120 beats per minute range. Patient was taken urgently for cardiac catheterization and was noted to have a 95% distal left main stenosis, 99% ostial LAD stenosis. An intra-aortic balloon pump was placed, and patient was transferred to [facility] for CABG. His LVEF was 25% to 30% prior to his bypass surgery. Patient subsequently underwent CABG x 2 vessels on 05/03/2021 including WISDOM to LAD, and SVG to OM. Additionally he underwent a left atrial appendactomy. Patient tolerated the surgery well, but did have some atrial arrhythmias around the time of surgery. Postoperatively did well, participated with cardiac rehab, peak METS >5. Blood pressures initially elevated, improved on increased irbesartan. Had issues with lower extremity edema which improved with brief course of Lasix. Recent cardiac studies: Echo 09/2021mild LVH, LVEF 50 to 55%, mild MR, mild PH 40 to 45 mmHg, RA 8 mmHg Principal Diagnosis heart block Discharge Exam on the day of discharge the patient was alert and oriented Normal respiratory effort Evaluation of the device implant site revealed some mild ecchymosis but no significant drainage, hematoma or erythema. Discharge Data Allergies Allergy/AdvReac Type Severity Reaction Status Date / Time pollen extracts Allergy Unknown IN THE Verified 03/01/23 11:08 SPRING, ITCHY EYES, RUNNY NOSE No Known Drug Allergies Allergy Verified 03/01/23 11:08 latex AdvReac Unknown "BURNING Verified 03/01/23 11:08 SENSATION AT THE DENTIST" Consultations 03/01/23 12:45 Consult Cardiology Routine Procedures Performed Operation Date: 03/02/23 12:00 Actual Procedures p Pacer with A/V Leads (Dual) - Taye Wilson MD Ordered Studies 03/02/23 10:15 EP Lab Images for PACS ONCE Hospital Course (1) Bradycardia: 2. CAD--post 2V CABG 04/2021 (WISDOM-LAD, SVG-OM) 3. Paroxysmal atrial fibrillation/Atrial flutter 4. Mitral regurgitationmild 09/2021 5. Hypertension 6. Dyslipidemia 7.Carotid artery stenosis> 70% BRANDON, asymptomatic Patient's TCAR postponed due to asymptomatic bradycardia to the 30s with A-V dissociation and junctional escape rhythm. This is not a new finding on review of prior ECGs but feel long-term would benefit from pacemaker and acutely will allow for planned TCAR. On the day following admission the patient underwent implantation of a dual chamber Medtronic pacemaker with left bundle pacing lead. The procedure was uncomplicated. The following morning a device evaluation revealed normal function. Chest x-ray demonstrated stable lead position without evidence of pneumothorax. Evaluation of the wound revealed the absence of a hematoma or complication. Plan The patient would be discharged with instructions to avoid lifting left arm above the shoulder behind the neck for 6 weeks. Keep the wound dry and Steri- Strips intact until next week. He continues to hold systemic anticoagulation in preparation for his carotid procedure next week. Total Time Total Time Spent Total Time Spent (In Minutes): 20 Discharge Plan Discharge Items Patient Disposition: Home - Self-Care Reason For Visit: Severe Right Internal Carotid Artery Stenosis Discharge Diagnosis: Heart Block Condition on Discharge: Good Activity: Resume your previous activity Lifting: No more than 10 pounds Lifting Comment: No lifting left arm above shoulder or behind neck for 6 weeks Bathing: Keep incision dry Bathing Comment: Keep wound dry and steri-strip intact for 7 days Exercise/Sports: Rest today Driving/Machine Use: Resume 1 day after discharge Non-emergency contact: Tandem Operator Call non-emergency contact if: you have any medication questions, your pain is concerning for you, you have a fever, your wound has increased redness and your wound has increased drainage Follow-up/Referrals: Taye Rm MD [Primary Care Provider] - 03/07/23 3:30 pm Diet: Heart Healthy Addtl Attending Provider Instructions: Continue to hold Xarelto per instructions from Dr Whitehead Pending Studies at Discharge: No Stand-Alone Forms: My [facility] AddShoppers, Smoking Cessation Medications and DC Order Prescriptions: Continued atorvastatin 80 mg tablet 80 mg PO HS Qty: 90 3RF esomeprazole magnesium [Nexium] 40 mg capsule,delayed release(DR/EC) 40 mg PO QPM Qty: 90 3RF Xarelto 20 mg tablet 20 mg PO QPM Rx Instructions: must administer with evening meal aspirin [Adult Low Dose Aspirin] 81 mg tablet,delayed release (DR/EC) 81 mg PO QAM ezetimibe [Zetia] 10 mg tablet 5 mg PO QAM multivitamin Tablet 1 tab PO QAM amlodipine 5 mg tablet 5 mg PO QAM hydrochlorothiazide 25 mg tablet 25 mg PO QAM irbesartan [Avapro] 300 mg tablet 300 mg PO QAM Brilinta 75 mg PO BID sildenafil [Viagra] 100 mg tablet 100 mg PO UD PRN (Reason: sexual activity) Rx Instructions: administer 30 minutes to 4 hours before activity Discharge Orders: Discharge Order (Routine); Ordered 03/03/23 Ordered By: Taye Wilson Admission Data Admit Date/Time: 03/01/23 16:19 Attending Provider: Alexis Rosas Admit Provider: Alexis Rosas Primary Care Provider: Taye Rm Other Providers: Alexis Rosas Other Interventions: Discharge Summary Assessment (RN) Last Done: 03/03/23 10:35 Coding Level of Care Code 92354 IN/OBS DISCH 30 MIN/LESS Diagnoses Bradycardia R00.1
== END 2023-03-03 11:05 | disposition home or self-care (01) | DRG 244 ==
LOC: 1E 10:30 → ASU 10:30

== ENCOUNTER 2023-03-08 08:13 | Inpatient (IN) ==
--- NOTE | 2023-03-07 09:53 | Anesthesiology Consultation ---
Date of Service March 07, 2023 Assessment & Plan (1) Encounter for pre-operative examination: Plan - surgery 03/01/23 postponed d/t complete heart block, pt now s/p Medtronic pacemaker. - discharge summary 03/03/23 [facility]: "...multivessel CAD post 2 vessel CABG 04/2021 seen today in surgery preop due to bradycardia, complete heart block. Patient previously had a CT of his neck which showed a >70% right ICA stenosis and was to undergo TCAR with Dr. Whitehead today. Noted to be bradycardic as low as the high 30s with telemetry showing complete heart block. With bradycardia patient asymptomatic, hemodynamically stable...underwent implantation of a dual chamber Medtronic pacemaker with left bundle pacing lead. The procedure was uncomplicated. The following morning a device evaluation revealed normal function. Chest x-ray demonstrated stable lead position without evidence of pneumothorax. Evaluation of the wound revealed the absence of a hematoma or complication...carotid procedure next week..." -anesthesia reaction: violent reaction post-op. - Medtronic pacemaker. Pacemaker rep NOT needed per Dr. Hazel. -cardiology clearance 02/20/23 [place]:"...Stable from a cardiac standpoint. Remains active, exercising regularly without exertional symptoms. On exam today no signs of heart failure or new PVD. Blood pressure reasonably controlled. Plan to continue ASCVD secondary prevention including current statin/Zetia and antihypertensives (ARB, thiazide, CCB). Continue current Xarelto for AF. Patient planning to undergo TCAR with vascular surgery. Will defer additional antiplatelet therapy to them post stenting. From a cardiac standpoint patient relatively low risk for planned vascular surgery and okay to proceed without additional cardiac testing. Xarelto can be held for 72 hours prior to procedure if needed..." -pulmonology 01/26/23 [place]:"...Multiple pulmonary nodules. Largest being 6 mm in the right lower lobe appreciated on CT chest 12/2021. In the patient was in the 8-pack-year smoking history quit in 1973. Would be considered low risk. Patient denies any B type symptoms...repeat a CT chest in 1 year, if on the repeat CT chest the nodules are stable then no more CAT scans going forward. CT chest 11/22/2022 personally reviewed: Gastric pull-through procedure with debris within. Right lower lobe peripheral 6 mm pulmonary nodule, left lower lobe two 5 mm pulmonary nodules (unchanged 12/2019). No mediastinal lymphadenopathy-- Chronic cough Likely secondary to esophagectomy status post gastric pull-up. Possible aspiration with reflux--> continue with Nexium. Advised the patient to eat slowly and in small portions..." - COVID screening: Per cash processor on 03/07/2023: Travel screen negative, no kn own COVID-19 positive contacts or current COVID-19 related symptoms in past 2 weeks. To surgeon's discretion if preop COVID testing is needed. Chart Review Chart Review: Acceptable Risk for Surgery and Patient NOT seen in Pre Admission Testing History Surgery Operation Date: 03/08/23 11:00 Proposed Procedures p Right Transcarotid Artery Revascularization - Norbert Whitehead MD Height/Weight Height: 5 ft 9 in Weight: 68.039 kg Allergies Allergy/AdvReac Type Severity Reaction Status Date / Time latex Allergy Mild "BURNING Verified 03/07/23 08:39 SENSATION AT THE DENTIST" pollen extracts Allergy Mild IN THE Verified 03/07/23 08:39 SPRING, ITCHY EYES, RUNNY NOSE No Known Drug Allergies Allergy Verified 03/07/23 08:39 Medications Home Medications Medication Instructions Recorded Confirmed Last Taken multivitamin 1 tab PO QAM 11/30/18 03/07/23 02/28/23 atorvastatin 80 mg tablet 80 mg PO HS #90 tabs 12/08/22 03/07/23 02/28/23 21:00 esomeprazole magnesium 40 mg 40 mg PO QPM #90 caps 12/08/22 03/07/23 02/28/23 21:00 capsule,delayed release (Nexium) rivaroxaban 20 mg tablet (Xarelto) 20 mg PO QPM 01/11/23 03/07/23 02/28/23 21:00 aspirin 81 mg tablet,delayed 81 mg PO QAM 02/20/23 03/07/23 03/01/23 07:00 release (Adult Low Dose Aspirin) ezetimibe 10 mg tablet (Zetia) 5 mg PO QAM 02/20/23 03/07/23 03/01/23 07:00 amlodipine 5 mg tablet 5 mg PO QAM 02/22/23 03/07/23 03/01/23 07:00 hydrochlorothiazide 25 mg tablet 25 mg PO QAM 02/22/23 03/07/23 03/01/23 07:00 irbesartan 300 mg tablet (Avapro) 300 mg PO QAM 02/22/23 03/07/23 03/01/23 07:00 Brilinta 75 mg PO BID 02/23/23 03/07/23 03/01/23 07:00 sildenafil 100 mg tablet (Viagra) 100 mg PO UD PRN sexual activity 03/01/23 03/07/23 Unknown Past Medical History Medical History Achalasia Afib on anticoagulation Basal cell carcinoma of skin HX / 20 YR AGO Benign prostate hyperplasia CAD (coronary artery disease) s/p CABG x 2 04/2021 Cardiac pacemaker medtronic placed 03/02/23 Carotid artery stenosis, asymptomatic > 70% occlusion R ICA, upcoming R CEA Essential hypertension variable History of anesthesia reaction TEND TO SWING AT PEOPLE WHEN WAKING UP FROM ANESTHESIA History of cardiac murmur History of gastric ulcer History of myocardial infarction 2020...CATH...BYPASS SX Hypercholesterolemia Internal hemorrhoids HX Ischemic cardiomyopathy EF 50%, recovered from 25-30% Male erectile disorder of organic origin Pulmonary hypertension Mild pulmonary hypertension, Est PASP 40-45 mmHg-09/2021 echo Pulmonary nodules annual CT @ [facility] Rheumatic fever HX Tubular adenoma of colon (2017) HX / BENIGN Past Family History Family History Father Stroke syndrome Hyperlipidemia Mother Hypertension Mother Hypertension Sister Hypertension Aunt Breast cancer Other Family history non-contributory Denies family history of Prostate cancer Colorectal cancer Past Surgical History Surgical History History of arthroscopy of left shoulder History of cardiac cath PRIOR TO HEART BYPASS SX - [facility] History of colonoscopy History of endoscopy History of esophageal surgery POEM APPROX 5 YR AGO History of heart bypass surgery 1 YR AGO , APRIL 2021 - [facility] History of left cataract surgery "Patient bradycardic with what appears to be junctional rhythm in 30's, BP stable, patient up to chair at bedside without issues, denies lightheadedness/palpitations. Patient states he's always had HR in 40s at rest. Last EKG shows Aflutter with junctional rhythm at last cardiology appo intment..." History of right cataract surgery History of vasectomy Status post biopsy of skin Status post placement of cardiac pacemaker 03/02/[address] Wilson @ [facility] Status post unilateral inguinal hernia repair Social History Smoking Status: Former smoker tobacco type: cigarettes and pipe Do You Dip or Chew Tobacco: No Hx Alcohol Use: Yes Alcohol type: hard liquor alcohol intake frequency: 0-2 drinks per day Hx Substance Use: No substance use type: does not use Lab Results Anesthesia Preop Results Results Anesthesia Widget: WBC 5.62 K/ul (4.8-10.8) 02/23/23 Hgb 12.9 g/dl (14.0-18.0) L 02/23/23 Hct 35.6 % (42.0-52.0) L 02/23/23 Plt 157 K/uL (130-400) 02/23/23 Na 138 mmol/L (136-145) 03/02/23 K 4.3 mmol/L (3.5-5.1) 03/02/23 Cl 105 mmol/L (98-107) 03/02/23 CO2 26 mmol/L (21-32) 03/02/23 BUN 24 mg/dl (6-23) H 03/02/23 Creat 1.09 mg/dl (0.6-1.4) 03/02/23 Glucose Level 103 mg/dl (70-99(Fasting)) H 03/02/23 PT 17.7 Seconds (9.0-12.0) H 02/23/23 PTT 35.6 Seconds (21.0-31.0) H 02/23/23 INR 1.7 (0.9-1.1) H 02/23/23 TSH 1.057 uIu/ml (0.300-4.500) 03/02/23 SARS-CoV-2, RNA, NAAT NEGATIVE (NEGATIVE) 03/01/23 Blood Type A Positive 03/01/23 Antibody Screen NEGATIVE 03/01/23 Testing Electrocardiogram Date: 03/02/23 AV dual paced complexes and atrial sensed ventricular-paced rhythm with intrinsic complexes, rate 63 bpm Chest X-Ray Date: 03/03/23 No pneumothorax following placement of a dual-lead left subclavian pacemaker Echocardiogram Date: 03/02/23 EF 60-65% Abnormal septal motion consistent with post-operative state Mild cLVH Borderline dilated RV, normal RV function. Mildly dilated RA Aortic valve sclerosis Borderline pulmonary hypertension. Est PASP 35 mmHg Cardiac Catheterization Date: 05/02/21 LM -medium caliber, 95% distal stenosis at bifurcation with acute thrombus LAD -calcified, 99% ostial stenosis, 40% lateproximal stenosis at takeoff of small first diagonal, 60% mid stenosis, distal vessel without significant disease and wraps around apex. Circumflex -95% ostial, 50% mid, large OM 2 without significant disease. RCA -dominant, moderate caliber, mild diffuse mid segment disease, 50% distal RCA stenosis, small right PDA without disease. 1. Severe left main coronary artery disease extending into ostial LAD/circumflex -95% distal left main at bifurcation 2. Multivessel CAD 99% ostial LAD, 60% mid LAD 95% ostal LCx, 50% mid circumflex 50% distal RCA 3. Borderline intracardiac filling pressure 4. Successful IABP placement Recommendations: Transfer to [facility] for CABG evaluation. Other Testing Pacemaker report 03/02/23 Medtronic Mode DDD Neck CTA 01/25/23 Greater than 70% occlusion of the right ICA, minimally progressed from prior exam. Nonhemodynamically significant stenosis in the left ICA. Additional findings as above. Assessment of stenosis of the internal carotid arteries is based on NASCET criteria. Chest CT 11/22/22 1. No change in multiple small pulmonary nodules since chest CT of December 16, 2021. These are probably benign. Follow up chest CT in one year to ensure continued stability is recommended. 2. No change in a markedly dilated esophagus which contains ingested contents. This may reflect achalasia.
[~2023-03-08 08:13] MED LIST changes: +CEFAZOLIN 2,000 MG/15 ML SYR IV SCH; +LACTATED RINGER'S 1,000 ML BAG IV SCH; -LACTATED RINGER'S 1,000 ML IV SCH; -PHENYLEPHRINE HCL 25 MG/250 ML NSS IV ONE; -ceFAZolin 2000MG 2,000 MG/15 ML SYR IV SCH
[2023-03-08] MEDS ORDERED: fentaNYL citrate PF 100 MCG/2 ML VIAL ONE (08:40)
[2023-03-08] MEDS ORDERED: HEPARIN SOD (PORCINE) 1000 UNIT/ML ONE (08:43)
[2023-03-08] MEDS ORDERED: PHENYLEPHRINE HCL 10 MG/ML VIAL ONE (08:43)
[2023-03-08] MEDS ORDERED: ESMOLOL HCL INJ 10 MG/ML 10ML VIAL IV ONE (08:43)
[2023-03-08] MEDS ORDERED: PROPOFOL IV EMULSION 10 MG/ML 20 ML VIAL IV ONE (08:43)
[2023-03-08] MEDS ORDERED: ROCURONIUM BROMIDE 10 MG/ML 5 ML VIAL IV ONE ×4 (08:43→10:49)
[2023-03-08] MEDS ORDERED: DEXAMETHASONE SOD INJ 4 MG/ML VIAL ONE (08:43)
[2023-03-08] MEDS ORDERED: ONDANSETRON INJ 2 MG/ML 2 ML VIAL ONE (08:43)
[2023-03-08] MEDS ORDERED: SUGAMMADEX SODIUM 200 MG/2 ML VIAL IV ONE (08:43)
--- NOTE | 2023-03-08 09:22 | History & Physical Bridge Note ---
Date of Service March 08, 2023 History & Physical Bridge Note I have examined the patient, reviewed the History & Physical and in the interval since the performance of the History & Physical I have noted the following changes of clinical significance: no changes noted
[2023-03-08] MEDS ORDERED: HEPARIN (PORCINE) 1000 UNIT/ML 10 ML (CATH LAB USE ONLY) ONE (09:33)
[2023-03-08] MEDS ORDERED: BUPIVACAINE/EPINEPHRINE 0.5% MPF 1:200,000 30 ML VIAL ONE (09:33)
[2023-03-08] MEDS ORDERED: THROMBIN FOR SOLN 20000 UNIT KIT ONE (09:33)
[2023-03-08] MEDS ORDERED: ceFAZolin 330 MG/ML 1 GM VIAL ONE (09:33)
[2023-03-08] MEDS ORDERED: GELATIN SPONGE SZ 100 ONE (09:33)
[2023-03-08] MEDS ORDERED: PROMETHAZINE HCL 12.5 MG in SODIUM CHLORIDE 0.9% 50 ML IV PRN (09:42)
[2023-03-08] MEDS ORDERED: ONDANSETRON INJ 2 MG/ML 2 ML VIAL IV PRN (09:42)
[2023-03-08] MEDS ORDERED: fentaNYL citrate PF 100 MCG/2 ML VIAL IV PRN (09:42)
[2023-03-08] MEDS ORDERED: ATROPINE SULFATE 0.1 MG/ML 10ML SYR IV PRN (09:42)
[2023-03-08] MEDS ORDERED: ePHEDrine sulfate 50 MG/ML AMP IV PRN (09:42)
[2023-03-08] MEDS ORDERED: HYDROmorphone INJ 1 MG/ML SYRINGE IV PRN (09:42)
[2023-03-08] MEDS ORDERED: PROTAMINE SULFATE 10 MG/ML 5 ML VIAL IV ONE (11:08)
[2023-03-08] MEDS ORDERED: SURGICEL ABSORB HEMOSTAT 2IN X 14IN TOP ONE (11:09)
[2023-03-08] MEDS ORDERED: ARISTA ABSORBABLE HEMOSTAT 3GM TOP ONE (11:18)
--- NOTE | 2023-03-08 11:22 | Procedure Note ---
Angiogram Post Procedure Fluoroscopy Time (minutes): 2.9 Radiation (mGy): 21 Contrast: 15 Post Operative Report Pre & Post Diagnosis Operation Date: 03/08/23 10:30 Pre-Op Diagnosis: Right Internal Carotid Artery Stenosis Post-Op Diagnosis: Right Internal Carotid Artery Stenosis I identified the patient and participated in the time-out.: Yes Procedure Operation Date: 03/08/23 10:30 Actual Procedures p Right Transcarotid Artery Revascularization, ultrasound left common femoral vein(Right) - Norbert Whiethead MD Surgeon Norbert Whitehead MD Picker Feeder Micaela,PAC Estimated Blood Loss 10 Findings Consistent with Post-Op Diagnosis Specimens none Anesthesia Type General Complications none Disposition Accompanied Patient To Recovery: No Disposition: Recovery Room Indications This 77-year-old gentleman was found to have a severe right internal carotid artery stenosis. Intervention was recommended. We discussed TCAR versus endarterectomy and he elected to go ahead with the TCAR procedure. I have discussed the risks options and benefits of the procedure with the patient. The patient understands the risks options and benefits and agrees to the procedure. Description of Procedure The patient was taken to the operating room and placed in supine position. After general anesthesia was accomplished the groins and right side of the neck and chest were prepped and draped in a sterile manner. Timeout was performed and the patient was identified. A transverse incision was made just above the clavicle between the heads of the sternocleidomastoid. This is carried down to where the common carotid artery was identified. It was isolated. It was slung with umbilical tape. Next the U stitch was placed in the common carotid artery with a 5-0 Prolene suture. Patient was given 7000 heparin at that time. Ultrasound was then used to localize the left common femoral vein. The vein was patent and compressed easily. Under ultrasound guidance the left common femoral vein was punctured and the venous sheath was inserted. This was aspirated and flushed with heparinized saline. ACT at that time was 401. Using micropuncture technique the common carotid artery was punctured. The micro sheath was inserted to 3 cm using the tunneling technique. Injection was then done showing the bifurcation. There was a significant lesion seen just beyond the origin of the internal carotid artery on the right side. We then inserted the J-wire left and short of the lesion. The micro sheath was removed and the TCAR sheath was inserted. Once it was in place and held against the artery it was sutured to the chest wall and the incision edge. We then flushed the tubing appropriately. The venous return to was clamped onto the TCAR sheath. It was flushed through and then attached to the venous inflow sheath in the left groin. Sheath was checked for flow. The saline cleared nicely. The common carotid artery was then clamped. Flow reversal was instituted. We inserted a 5 x 35 balloon backloaded on the wire. The wire was passed through the lesion into the petrous portion of the internal carotid. The 5 balloon was then advanced to the lesion. Lesion was then predilated with a 5 mm balloon. Balloon was removed. We then inserted the 9 x 40 stent. This was deployed across the lesion without difficulty. The catheter was removed. The carotid was allowed to go 2 minutes with flow reversal. Completion angiogram was done at that time which showed a residual stenosis in the distal portion of the stent. We therefore postdilated this region with a 5 x 35 balloon. Another injection done at that time showed better results with minimal residual narrowing. At that point the common carotid artery was unclamped. The venous return tubing was clamped and removed from the TCAR sheath. The blood was allowed to flow back into the venous system. Once this was completed the sheath was pulled from the groin and pressure was applied. The TCAR sheath was then removed and the 5-0 Prolene suture securely tied. Hemostasis was noted of the puncture site. Wound was irrigated with Ancef solution. Adequate hemostasis was obtained of the wound. Once this was noted the wound was closed in usual fashion using a 3-0 Vicryl suture for the subcutaneous layer and a 4-0 subcuticular Vicryl suture for the skin edges. Dermabond was used for dressing.The patient left the operation room in satisfactory condition and tolerated the procedure well. All needle and sponge counts were correct at the end of the procedure. Ana Laura Rojas Pac assisted due to lack of resident availability and was necessary for positioning, draping, retraction, wound closure deep layers, subcutaneous tissue, and skin closure and was necessary for assisting with the case. I attest to the content of the Intraoperative Record and any orders documented therein. Any exceptions are noted below.
[2023-03-08] MEDS ORDERED: VISIPAQUE IV ONE (12:55)
--- NOTE | 2023-03-08 13:00 | Anesthesiology Progress Note ---
Date of Service March 08, 2023 Anesthesia Post Procedure Vital Signs Vital Signs: Temp Pulse Pulse Resp BP BP BP 03/08/23 13:24 60 21 03/08/23 13:24 145/61 H 03/08/23 13:19 61 19 03/08/23 13:19 106/40 L 03/08/23 12:50 62 18 118/51 L 90/52 L 03/08/23 12:30 63 20 122/46 L 126/53 L 03/08/23 12:10 60 18 132/39 L 135/53 L 03/08/23 12:00 61 20 92/44 L 87/41 L 03/08/23 11:50 62 20 90/44 L 72/39 L 03/08/23 12:40 36.4 C L 63 20 118/51 L 126/53 L 03/08/23 12:20 64 20 128/50 L 135/55 L 03/08/23 11:40 61 16 106/40 L 85/30 L 03/08/23 11:39 36.0 C L 62 14 106/42 L 84/40 L 03/08/23 08:57 36.6 C 65 20 BP Pulse Ox O2 Del Method 03/08/23 13:24 98 03/08/23 13:24 03/08/23 13:19 99 03/08/23 13:19 03/08/23 12:50 100 Room Air 03/08/23 12:30 100 Room Air 03/08/23 12:10 100 Room Air 03/08/23 12:00 100 Room Air 03/08/23 11:50 100 Room Air 03/08/23 12:40 100 Room Air 03/08/23 12:20 100 Room Air 03/08/23 11:40 100 Room Air 03/08/23 11:39 100 Room Air 03/08/23 08:57 133/55 L 98 Room Air Transfer of Care Handoff Completed per policy Notes Mental Status: alert / awake / arousable and participated in evaluation Patient Amnestic to Procedure: Yes Nausea / Vomiting: adequately controlled Pain: adequately controlled Airway Patency, RR, SpO2: stable & adequate BP & HR: stable & adequate Hydration State: stable & adequate Anesthetic Complications: no major complications apparent
[2023-03-08] MEDS ORDERED: NON-FORMULARY MEDICATION (Sildenafil [Viagra] 100 mg tablet) PO PRN (13:17)
[2023-03-08] MEDS ORDERED: oxyCODONE/ACETAMINOPHEN 5mg/325mg TAB PO PRN (13:17)
[2023-03-08] MEDS: LACTATED RINGER'S 1,000 ML IV SCH ×2 (13:26→23:11)
[2023-03-08] MEDS ORDERED: STAT IV Infusion **Titration per Protocol STA (13:59)
[2023-03-08] MEDS ORDERED: LACTATED RINGER'S 250 ML IV ONE ×2 (14:01→14:40)
--- NOTE | 2023-03-08 14:01 | Critical Care Consultation ---
Date of Consultation March 08, 2023 Assessment & Plan (1) Shock circulatory: (2) S/P CABG x 2: (3) Atrial fibrillation: (4) Abnormal chest CT: (5) Carotid stenosis: Plan -- Shock Likely postanesthesia/TCAR Continue with vasopressor support to keep MAP greater than 65 Hold blood pressure medication 2D echo 03/02/2023: EF 60-65%, mild concentric LVH, PASP 35 mmHg, --Carotid artery stenosis S/p right-sided TCAR 03/08/[address] Whitehead Continue with neurochecks Monitor H&H -- Hematoma around the pacemaker site Seems to be old/resolving Continue to monitor --Dyslipidemia Continue with atorvastatin -- Multiple pulmonary nodules Largest being 6 mm in the right lower lobe appreciated on CT chest 12/2021 In the patient was in the 8-pack-year smoking history quit in 1973 Would be considered low risk Patient denies any B type symptoms Patient to have CAT scan done in 2023 if that is stable no further CAT scan of the chest needed CT chest 11/22/2022ersonally reviewed: Gastric pull-through procedure with debris within Right lower lobe peripheral 6 mm pulmonary nodule, left lower lobe two 5 mm pulmonary nodules(unchanged 12/2019) No mediastinal lymphadenopathy -- Chronic cough Likely secondary to esophagectomy status post gastric pull-up Possible aspiration with reflux --> continue with Nexium Advised the patient to eat slowly and in small portions -- A-fib On Xarelto --Prophylaxis VTE: IPC and Xarelto GI: Pantoprazole Lines: Right radial Diet: Cardiac Plan: Strict in and out Neurochecks Give the patient 500 mL of bolus. All question inquiries of the patient and patient's family were answered in depth I have personally spent 43 minutes of critical care time in the direct management of this patient. This is a life/limb threatening event. This includes time spent evaluating patient, direct bedside care, chart review, placing orders, interpretation of diagnostic studies, discussion with consultants, patient, and family members, as well as other required patient management activities. This time is exclusive of all separately billable procedures, and teaching time and separate from and in addition to any other critical care service time. Please note the above document was generated using voice recognition software. It may contain grammatical, syntax or spelling errors. History of Present Illness Attending Physician: Norbert Whitehead MD History of Present Illness 77-year-old male is admitted to the hospital s/p right-sided TCAR Past medical history: Dyslipidemia, hypertension,A. fib on Xarelto, s/p esophagectomy 2015, status post CABG 2020, s/p pacemaker 02/2023 Patient follows up with me in the office and was seen last on 01/26/2023 Patient was sent to the ICU for post TCAR care At the time of examination patient's family was in the room He was on phenylephrine 0.8 mics. He has labile blood pressure sometimes going systolic into the 100s but it also goes down in the 70s and it does correlate with A-line. He is not symptomatic at that time. Denies any chest pain, no shortness of breath No headache, no blurry vision No nausea or vomiting. Does complain of mild soreness around the site of the incision. Social history: Only 8-pack-year smoking history, quit in 1973, social alcohol, denies any illicit drug use. Used to work in [employer] Pets: None. No birds or poultry nearby Allergies: Seasonal, does not take any medications for it Asthma: No personal family history of asthma Lung cancer: No history of lung cancer in the family Allergies Allergy/AdvReac Type Severity Reaction Status Date / Time latex Allergy Mild "BURNING Verified 03/08/23 08:58 SENSATION AT THE DENTIST" pollen extracts Allergy Mild IN THE Verified 03/08/23 08:58 SPRING, ITCHY EYES, RUNNY NOSE No Known Drug Allergies Allergy Verified 03/08/23 08:58 Home Medications Medication Instructions Recorded Confirmed Type multivitamin 1 tab PO QAM 11/30/18 03/08/23 History atorvastatin 80 mg tablet 80 mg PO HS #90 tabs 12/08/22 03/08/23 Rx esomeprazole magnesium 40 mg 40 mg PO QPM #90 caps 12/08/22 03/08/23 Rx capsule,delayed release (Nexium) rivaroxaban 20 mg tablet (Xarelto) 20 mg PO QPM 01/11/23 03/08/23 History aspirin 81 mg tablet,delayed 81 mg PO QAM 02/20/23 03/08/23 History release (Adult Low Dose Aspirin) ezetimibe 10 mg tablet (Zetia) 5 mg PO QAM 02/20/23 03/08/23 History amlodipine 5 mg tablet 5 mg PO QAM 02/22/23 03/08/23 History hydrochlorothiazide 25 mg tablet 25 mg PO QAM 02/22/23 03/08/23 History irbesartan 300 mg tablet (Avapro) 300 mg PO QAM 02/22/23 03/08/23 History Brilinta 75 mg PO BID 02/23/23 03/08/23 History sildenafil 100 mg tablet (Viagra) 100 mg PO UD PRN sexual activity 03/01/23 03/08/23 History Patient History Medical History Achalasia Afib on anticoagulation Basal cell carcinoma of skin HX / 20 YR AGO Benign prostate hyperplasia CAD (coronary artery disease) s/p CABG x 2 04/2021 Cardiac pacemaker medtronic placed 03/02/23 Carotid artery stenosis, asymptomatic > 70% occlusion R ICA, upcoming R CEA Essential hypertension variable History of anesthesia reaction TEND TO SWING AT PEOPLE WHEN WAKING UP FROM ANESTHESIA History of cardiac murmur History of gastric ulcer History of myocardial infarction 2020...CATH...BYPASS SX Hypercholesterolemia Internal hemorrhoids HX Ischemic cardiomyopathy EF 50%, recovered from 25-30% Male erectile disorder of organic origin Pulmonary hypertension Mild pulmonary hypertension, Est PASP 40-45 mmHg-09/2021 echo Pulmonary nodules annual CT @ [place] Rheumatic fever HX Tubular adenoma of colon (2017) HX / BENIGN Surgical History History of arthroscopy of left shoulder History of cardiac cath PRIOR TO HEART BYPASS X - [facility] History of colonoscopy History of endoscopy History of esophageal surgery POEM APPROX 5 YR AGO History of heart bypass surgery 1 YR AGO , APRIL 2021 - [facility] History of left cataract surgery "Patient bradycardic with what appears to be junctional rhythm in 30's, BP stable, patient up to chair at bedside without issues, denies lightheadedness/palpitations. Patient states he's always had HR in 40s at rest. Last EKG shows Aflutter with junctional rhythm at last cardiology appointment..." History of right cataract surgery History of vasectomy Status post biopsy of skin Status post placement of cardiac pacemaker 03/02/[address] Wilson @ [facility] Status post unilateral inguinal hernia repair Family History Father Stroke syndrome Hyperlipidemia Mother Hypertension Mother Hypertension Sister Hypertension Aunt Breast cancer Other Family history non-contributory Denies family history of Prostate cancer Colorectal cancer Social History Smoking Status: Former smoker Age Started Using Tobacco: 19; Age Quit Using Tobacco: 27; packs per day: 1; Second Hand Exposure: No; Do You Dip or Chew Tobacco: No; Tobacco Cessation Education Requested by Patient: No Hx Alcohol Use: Yes Alcohol type: hard liquor Alcohol Intake Frequency Comment: About 1 alcoholic drink per day. Hx Substance Use: No Preferred Language: Wolof Communication Ability: Effective Visual Impairment: No Limitations Hearing Ability: Normal Instrument Person Required: No Beliefs That Will Affect Care: None marital status: Current Living Situation: Spouse current occupational status: retired current occupation: Retired How many Children do You have: 2 Other Information That Helps Us Care for You: No Feels Safe at Home: Yes Safety Concerns: Feels Safe At This Time Childhood Exposure to Second-Hand Smoke: Yes Diet: regular caffeine: Yes during the past year weight has: remained stable Dental Care, Regularly: Yes Physical Activity Frequency: 1-2 Times per Week Seatbelt Use: always Sunscreen Use: Yes Assistive Devices: Glasses Review of Systems Review of Systems: All systems reviewed & are unremarkable except as noted in HPI & below Physical Exam Physical Exam: Constitutional: No acute distress HEENT: EOMI, PERRLA, right-sided incision site clean Respiratory system: Decreased air entry bilaterally, no wheeze, no rhonchi, mild crackles bilateral lower lobes CVS: S1-S2 positive, distant heart sounds, positive left-sided pacemaker with surrounding hematoma, infra areolar hematoma Abdomen: Soft, nontender, nondistended, positive bowel sounds x4 Extremities: +2 pulses bilaterally radialis/ dorsalis pedis, no cyanosis, no edema Neuro: Awake alert oriented x3 Psych: Normal mood and affect G/U: Positive Chung Skin: no rashes, warm and dry Lymphatic: no cervical or axillary lymphadenopathy Results & Data Results & Data Vital Signs (Past 12 Hours) Vital Signs Temp Pulse Pulse Resp BP BP BP 03/08/23 13:24 60 21 03/08/23 13:24 145/61 H 05/31/23 13:19 61 19 03/08/23 13:19 106/40 L 03/08/23 12:50 62 18 118/51 L 90/52 L 03/08/23 12:30 63 20 122/46 L 126/53 L 03/08/23 12:10 60 18 132/39 L 135/53 L 03/08/23 12:00 61 20 92/44 L 87/41 L 03/08/23 11:50 62 20 90/44 L 72/39 L 03/08/23 12:40 36.4 C L 63 20 118/51 L 126/53 L 03/08/23 12:20 64 20 128/50 L 135/55 L 03/08/23 11:40 61 16 106/40 L 85/30 L 03/08/23 11:39 36.0 C L 62 14 106/42 L 84/40 L 03/08/23 08:57 36.6 C 65 20 BP Pulse Ox O2 Del Method 03/08/23 13:24 98 03/08/23 13:24 03/08/23 13:19 99 03/08/23 13:19 03/08/23 12:50 100 Room Air 03/08/23 12:30 100 Room Air 03/08/23 12:10 100 Room Air 03/08/23 12:00 100 Room Air 03/08/23 11:50 100 Room Air 03/08/23 12:40 100 Room Air 03/08/23 12:20 100 Room Air 03/08/23 11:40 100 Room Air 03/08/23 11:39 100 Room Air 03/08/23 08:57 133/55 L 98 Room Air Coding Level of Care Code 56039 CRITICAL CARE 1ST 30-74M Diagnoses Shock circulatory R57.9 S/P CABG x 2 Z95.1 Atrial fibrillation I48.91 Atrial fibrillation type: unspecified Abnormal chest CT R93.89 Carotid stenosis I65.29 Time Spent (min) 43 Comment >50% time was spent [id number] with the patient discussing diagnosis and plan of care. (3) Atrial fibrillation Atrial fibrillation type: unspecified Qualified Code(s): I48.91 - Unspecified atrial fibrillation
[2023-03-08] MEDS: PHENYLEPHRINE/NSS 25 MG/250 ML BAG IV SCH ×2 (14:02→17:59)
[2023-03-08] MEDS: ceFAZolin 2000MG 2,000 MG/15 ML SYR IV SCH (18:00)
[2023-03-08] MEDS ORDERED: COUGH DROP (SUGAR FREE) LOZ 24 LOZ/1 BOX BUCCAL PRN (18:06)
[2023-03-08] MEDS ORDERED: HYDROCORTISONE SOD 100 MG in SYRINGE 0 ML IV STA (18:32)
[2023-03-08] MEDS: ATORVASTATIN 40 MG TAB PO SCH (20:11)
[2023-03-08] MEDS: TICAGRELOR 90 MG TAB PO SCH (20:11)
[2023-03-08] MEDS: PANTOprazole 40 MG TAB PO SCH (20:12)
[2023-03-08] MEDS: RIVAROXABAN 20 MG TAB PO SCH (20:18)
[2023-03-08] MEDS ORDERED: GLUCAGON FOR INJ 1 MG VIAL SQ PRN ×2 (20:45→23:45)
[2023-03-08] MEDS ORDERED: DEXTROSE 50% 50 ML SYRINGE IV PRN ×2 (20:45→23:45)
[2023-03-08] MEDS ORDERED: GLUCOSE 40% GEL 15 GM TUBE PO PRN ×2 (20:45→23:45)
[2023-03-08] MEDS ORDERED: GLUCOSE 10 TAB/TUBE PO PRN ×2 (20:45→23:45)
[2023-03-08] MEDS ORDERED: CARBOHYDRATES FOR HYPOGLYCEMIA PO PRN ×2 (20:45→23:45)
[2023-03-08] MEDS ORDERED: ICU Protocol for HYPERglycemia SCH (21:00)
[2023-03-09] MEDS: INSULIN ASPART PER UNIT CHARGE SC SCH ×5 (01:13→21:22)
[2023-03-09] MEDS: ceFAZolin 2000MG 2,000 MG/15 ML SYR IV SCH (01:13)
[2023-03-09] MEDS: PHENYLEPHRINE/NSS 25 MG/250 ML BAG IV SCH ×2 (01:35→11:52)
[2023-03-09] MEDS: HYDROCORTISONE SOD 50 MG in SYRINGE 0 ML IV SCH ×4 (01:36→21:23)
[2023-03-09] MEDS: LACTATED RINGER'S 1,000 ML IV SCH (05:45)
--- NOTE | 2023-03-09 07:20 | Critical Care Progress Note ---
Date of Service March 09, 2023 Assessment & Plan (1) Shock circulatory: (2) S/P CABG x 2: (3) Atrial fibrillation: (4) Abnormal chest CT: (5) Carotid stenosis: Plan -- Shock Likely postanesthesia/TCAR Continue with vasopressor support to keep MAP greater than 65 Hold blood pressure medication 2D echo 03/02/2023: EF 60-65%, mild concentric LVH, PASP 35 mmHg, --Carotid artery stenosis S/p right-sided TCAR 03/08/[address] Whitehead Continue with neurocheNanoledges Monitor H&H -- Hematoma around the pacemaker site Seems to be old/resolving Continue to monitor --Dyslipidemia Continue with atorvastatin -- Multiple pulmonary nodules Largest being 6 mm in the right lower lobe appreciated on CT chest 12/2021 In the patient was in the 8-pack-year smoking history quit in 1973 Would be considered low risk Patient denies any B type symptoms Patient to have CAT scan done in 2023 if that is stable no further CAT scan of the chest needed CT chest 3personally reviewed: Gastric pull-through procedure with debris within Right lower lobe peripheral 6 mm pulmonary nodule, left lower lobe two 5 mm pul monary nodules(unchanged 12/2019) No mediastinal lymphadenopathy -- Chronic cough Likely secondary to esophagectomy status post gastric pull-up Possible aspiration with reflux --> continue with Nexium Advised the patient to eat slowly and in small portions -- A-fib On Xarelto --Prophylaxis VTE: Xarelto GI: Pantoprazole Lines: Right radial Diet: Cardiac Plan: In/out: +2.6 L, urine output 1485 Patient still requiring low-dose phenylephrine to maintain his blood pressure. There are instances when it goes down into the 70s on the A-line. Radial line will be removed today. Get the patient out of the bed to chair to see if his blood pressure improves. Consideration of midodrine could be thought of, and will defer to vascular surgery Disposition as per vascular surgery I have personally spent 35 minutes of critical care time in the direct management of this patient. This is a life/limb threatening event. This includes time spent evaluating patient, direct bedside care, chart review, placing orders, interpretation of diagnostic studies, discussion with consultants, patient, and family members, as well as other required patient management activities. This time is exclusive of all separately billable procedures, and teaching time and separate from and in addition to any other critical care service time. Please note the above document was generated using voice recognition software. It may contain grammatical, syntax or spelling errors. Admission and Anticipated Discharge Date Admission Date: March 08, 2023 Subjective Patient seen and examined at bedside. No acute distress, no adverse events overnight Is able to tolerate clear liquid diet. Denies any dizziness, no headache, no nausea, no vomiting No shortness of breath, no chest pain Soreness at the site of the incision. He was on 0.5 of phenylephrine. Map was in the low 60s. Review of Systems Review of Systems: All systems reviewed & are unremarkable except as noted in Subjective Physical Exam Physical Exam: Constitutional: No acute distress HEENT: EOMI, PERRLA, right-sided incision site clean Respiratory system: Decreased air entry bilaterally, no wheeze, no rhonchi, mild crackles bilateral lower lobes CVS: S1-S2 positive, distant heart sounds, positive left-sided pacemaker with surrounding hematoma, infra areolar hematoma Abdomen: Soft, nontender, nondistended, positive bowel sounds x4 Extremities: +2 pulses bilaterally radialis/ dorsalis pedis, no cyanosis, no edema Neuro: Awake alert oriented x3 Psych: Normal mood and affect G/U: No Chung Skin: no rashes, warm and dry Lymphatic: no cervical or axillary lymphadenopathy Results & Data Results & Data Vital Signs (Past 12 Hours) Vital Signs Temp Pulse Resp BP Pulse Ox O2 Del Method 03/09/23 06:00 62 20 102/40 L 97 03/09/23 05:30 60 21 116/41 L 96 03/09/23 05:00 64 19 96/74 L 98 03/09/23 04:30 63 21 124/54 L 96 03/09/23 04:01 63 18 129/56 L 95 03/09/23 03:31 64 22 108/50 L 96 03/09/23 03:00 63 20 133/60 98 03/09/23 02:19 61 20 130/56 L 97 03/09/23 02:10 55 L 17 104/48 L 98 03/09/23 02:01 62 15 130/61 95 03/09/23 01:01 65 24 95/45 L 98 03/09/23 00:00 65 19 97 03/08/23 23:51 103/49 L 03/08/23 23:00 61 23 127/55 L 96 03/09/23 00:04 60 03/08/23 22:01 64 20 125/60 96 03/08/23 21:30 60 25 H 120/54 L 96 03/08/23 21:00 60 18 111/52 L 98 03/08/23 20:30 61 22 119/63 100 03/08/23 20:00 61 25 H 138/61 98 03/08/23 19:30 62 20 135/65 97 03/08/23 19:30 135/65 03/08/23 20:27 Room Air 03/08/23 20:27 36.5 C Coding Level of Care Code 61998 CRITICAL CARE 1ST 30-74M Diagnoses Shock circulatory R57.9 S/P CABG x 2 Z95.1 Atrial fibrillation I48.91 Atrial fibrillation type: unspecified Abnormal chest CT R93.89 Carotid stenosis I65.29 Time Spent (min) 35 (3) Atrial fibrillation Atrial fibrillation type: unspecified Qualified Code(s): I48.91 - Unspecified atrial fibrillation
[2023-03-09] MEDS ORDERED: PSEUDOEPHEDRINE HCL 30 MG TAB PO PRN (07:52)
[2023-03-09] MEDS ORDERED: PSEUDOEPHEDRINE HCL 30 MG TAB PO STA (07:52)
[2023-03-09] MEDS: TICAGRELOR 90 MG TAB PO SCH ×2 (08:13→21:22)
[2023-03-09] MEDS: EZETIMIBE 10 MG TABLET PO SCH (08:13)
[2023-03-09] MEDS: MULTIVITAMIN TAB PO SCH (08:14)
[2023-03-09] MEDS: ASPIRIN 81 MG ECTAB PO SCH (08:14)
--- NOTE | 2023-03-09 08:51 | Surgery Progress Note ---
Date of Service March 09, 2023 Assessment & Plan (1) Internal carotid artery stent present: Plan: Patient is doing well post TCAR. He has no neurological deficits. (2) Postoperative hypotension: Plan: He did have hypotension postop requiring Junior-Synephrine drip. We will start him on Sudafed p.o. and wean him off the junior-. If he is able to come off the Junior- Synephrine then he will be discharged later today. Admission and Anticipated Discharge Date Admission Date: March 08, 2023 Subjective Patient is awake alert and oriented and oriented. He is sitting up in his bed eating. He denies any difficulty swallowing. He denies any focal neurological deficits. He did have some hypotension requiring a Junior drip which he is still on a low-dose. He is asymptomatic from the low pressures. Physical Exam Constitutional: WD/WN, vitals as above Neck: trachea midline Respiratory: normal respiratory effort; no respiratory distress Cardiovascular: Rate/Rhythm: regular rate and regular rhythm Skin: + incision (There is minimal swelling with a small amount of ecchymosis present at the ) Neurologic: CN's II-XI intact bilaterally and moves all extremities Psychiatric: Orientation: alert and oriented x 3 Results & Data Vital Signs (Past 12 Hours) Vital Signs Pulse Resp BP Pulse Ox 03/09/23 07:31 64 21 97 03/09/23 07:31 116/42 L 03/09/23 07:30 65 23 96 03/09/23 07:00 64 11 L 96 03/09/23 07:00 124/53 L 03/09/23 06:31 64 23 94 03/09/23 06:31 129/59 L 03/09/23 06:30 66 20 94 03/09/23 06:00 62 20 102/40 L 97 03/09/23 05:30 60 21 116/41 L 96 03/09/23 05:00 64 19 96/74 L 98 03/09/23 04:30 63 21 124/54 L 96 03/09/23 04:01 63 18 129/56 L 95 03/09/23 03:31 64 22 108/50 L 96 03/09/23 03:00 63 20 133/60 98 03/09/23 02:19 61 20 130/56 L 97 03/09/23 02:10 55 L 17 104/48 L 98 03/09/23 02:01 62 15 130/61 95 03/09/23 01:01 65 24 95/45 L 98 03/09/23 00:00 65 19 97 03/08/23 23:51 103/49 L 03/08/23 23:00 61 23 127/55 L 96 03/09/23 00:04 60 03/08/23 22:01 64 20 125/60 96 03/08/23 21:30 60 25 H 120/54 L 96 03/08/23 21:00 60 18 111/52 L 98
[2023-03-09] MEDS ORDERED: amLODIPine BESYLATE 5 MG TAB PO SCH (09:00)
[2023-03-09] MEDS ORDERED: LOSARTAN POTASSIUM 50 MG TAB PO SCH (09:00)
[2023-03-09] MEDS ORDERED: hydroCHLOROthiazide 25 MG TAB PO SCH (09:00)
[2023-03-09] MEDS: RIVAROXABAN 20 MG TAB PO SCH (17:38)
[2023-03-09] MEDS: PANTOprazole 40 MG TAB PO SCH (21:22)
[2023-03-09] MEDS: ATORVASTATIN 40 MG TAB PO SCH (21:22)
[2023-03-10] MEDS: HYDROCORTISONE SOD 50 MG in SYRINGE 0 ML IV SCH (05:39)
[2023-03-10 06:01] LABS: BUN Creatinine Ratio 26.8 (10-20); Calcium 8.5 mg/dl (8.6-10.3); Creatinine Clr Calc Pharmacy 62.6 ml/min; Est GFR (African American) 87.5 ml/min; Est GFR (Non-African American) 75.5 ml/min; Magnesium 1.5 mg/dl (1.7-2.4); Phosphorus 3.6 mg/dl (2.5-4.9); Potassium 4.2 mmol/L (3.5-5.1)
[2023-03-10 06:21] LABS: Basophils # (auto) 0.01 K/uL (0-0.2); Basophils % (auto) 0.1 %; Eosinophils # (auto) 0.01 K/uL (0-0.50); Eosinophils % (auto) 0.1 %; Hemoglobin 8.2 g/dl (14.0-18.0); Immature Granulocytes # (auto) 0.05 K/uL (0.01-0.20); Immature Granulocytes % (auto) 0.4 %; Lymphocytes # (auto) 1.16 K/uL (1.2-3.4); Lymphocytes % (auto) 10.2 %; Mean Corpuscular Hemoglobin 33.5 pg (25.0-34.0); Mean Corpuscular Hgb Conc 35.7 g/dL (32.0-36.0); Mean Corpuscular Volume 93.9 fL (80.0-100.0); Mean Platelet Volume 11.6 fL (9.4-12.4); Monocytes # (auto) 0.64 K/uL (0.11-0.59); Monocytes % (auto) 5.6 %; Neutrophils # (auto) 9.51 K/uL (1.40-6.50); Neutrophils % (auto) 83.6 %; Platelet Count 133 K/uL (130-400); RDW Coefficient of Variation 12.6 % (11.5-14.5); RDW Standard Deviation 43.4 fL (36.4-46.3); Red Blood Count 2.45 M/uL (4.70-6.10); White Blood Count 11.38 K/ul (4.8-10.8)
[2023-03-10] MEDS ORDERED: MAGNESIUM SULFATE / D5W 1 GM/100 ML BAG IV SCH (06:45)
[2023-03-10] MEDS: INSULIN ASPART PER UNIT CHARGE SC SCH (07:22)
--- NOTE | 2023-03-10 07:45 | Critical Care Progress Note ---
Date of Service March 10, 2023 Assessment & Plan (1) Shock circulatory: (2) S/P CABG x 2: (3) Atrial fibrillation: (4) Abnormal chest CT: (5) Carotid stenosis: Plan -- S/p shock Likely postanesthesia/TCAR Continue with vasopressor support to keep MAP greater than 65 Hold blood pressure medication 2D echo 03/02/2023: EF 60-65%, mild concentric LVH, PASP 35 mmHg, --Carotid artery stenosis S/p right-sided TCAR 03/08/[address] Whitehead [facility] Monitor H&H -- Hematoma around the pacemaker site Seems to be old/resolving Continue to monitor --Dyslipidemia Continue with atorvastatin -- Multiple pulmonary nodules Largest being 6 mm in the right lower lobe appreciated on CT chest 12/2021 In the patient was in the 8-pack-year smoking history quit in 1973 Would be considered low risk Patient denies any B type symptoms Patient to have CAT scan done in 2023 if that is stable no further CAT scan of the chest needed CT chest 11/22/2022ersonally reviewed: Gastric pull-through procedure with debris within Right lower lobe peripheral 6 mm pulmonary nodule, left lower lobe two 5 mm pulmonary nodules(unchanged 12/2019) No mediastinal lymphadenopathy -- Chronic cough Likely secondary to esophagectomy status post gastric pull-up Possible aspiration with reflux --> continue with Nexium Advised the patient to eat slowly and in small portions -- A-fib On Xarelto --Prophylaxis VTE: Xarelto GI: Pantoprazole Lines: Peripheral Diet: Cardiac Plan: In/out: +285, urine output 875 Has been off phenylephrine for more than 12 hours. Magnesium being replaced. There has been drop in hemoglobin compared to patient's baseline which is most likely post OR. Patient is supposed to follow-up with vascular surgery in the next couple of days. Disposition as per vascular surgery Please note the above document was generated using voice recognition software. It may contain grammatical, syntax or spelling errors.Any formal questions or concerns about the content, text or information contained within the body of this dictation should be directly addressed to the provider for clarification. Admission and Anticipated Discharge Date Admission Date: March 08, 2023 Subjective Patient seen and examined at bedside. No acute distress, no episodes overnight. He has been off of phenylephrine since last evening. Denies any dizziness, no headache, no nausea, no vomiting Systolic blood pressure was 129 at the time of examination with saturation 96- 97% on room air Fair appetite Review of Systems Review of Systems: All systems reviewed & are unremarkable except as noted in Subjective Physical Exam Physical Exam: Constitutional: No acute distress HEENT: EOMI, PERRLA, right-sided incision site clean Respiratory system: Decreased air entry bilaterally, no wheeze, no rhonchi, mild crackles bilateral lower lobes CVS: S1-S2 positive, distant heart sounds, positive left-sided pacemaker with surrounding hematoma, infra areolar hematoma Abdomen: Soft, nontender, nondistended, positive bowel sounds x4 Extremities: +2 pulses bilaterally radialis/ dorsalis pedis, no cyanosis, no e conor Neuro: Awake alert oriented x3 Psych: Normal mood and affect G/U: No Chung Skin: no rashes, warm and dry Lymphatic: no cervical or axillary lymphadenopathy Results & Data Results & Data Vital Signs (Past 12 Hours) Vital Signs Pulse Resp BP Pulse Ox 03/10/23 05:00 63 19 100 03/10/23 05:00 120/53 L 03/10/23 04:30 62 17 99 03/10/23 04:00 62 19 100 03/10/23 04:00 117/45 L 03/10/23 03:30 60 16 96 03/10/23 03:00 60 15 98 03/10/23 03:00 108/43 L 03/10/23 02:30 59 L 17 95 03/10/23 02:00 60 16 100 03/10/23 02:00 113/46 L 03/10/23 01:30 60 18 100 03/10/23 01:00 62 18 99 03/10/23 01:00 124/46 L 03/10/23 00:00 60 20 96 03/10/23 00:00 106/36 L 03/10/23 00:00 106/36 L 03/09/23 23:00 60 100 03/09/23 23:00 140/61 03/09/23 22:00 60 17 96 03/09/23 22:00 128/53 L 03/09/23 21:30 62 20 100 03/09/23 21:18 107/43 L 03/09/23 21:18 60 23 98 03/09/23 21:18 107/43 L 03/09/23 21:00 60 29 H 95 03/09/23 21:00 126/59 L 03/09/23 20:45 62 17 96 03/09/23 20:45 132/60 03/09/23 20:30 62 0 L 100 03/09/23 20:30 123/53 L 03/09/23 20:15 122/60 03/09/23 20:15 62 12 98 03/09/23 20:00 58 L 22 98 03/09/23 19:45 62 19 100 03/09/23 19:45 98/42 L Laboratory Results 03/10/23 04:49 03/10/23 04:49 Coding Level of Care Code 93458 SUB INP/OBS CARE 2/35MIN Diagnoses Shock circulatory R57.9 S/P CABG x 2 Z95.1 Atrial fibrillation I48.91 Atrial fibrillation type: unspecified Abnormal chest CT R93.89 Carotid stenosis I65.29 (3) Atrial fibrillation Atrial fibrillation type: unspecified Qualified Code(s): I48.91 - Unspecified atrial fibrillation
--- NOTE | 2023-03-10 07:45 | Surgery Progress Note ---
Date of Service March 10, 2023 Assessment & Plan (1) Internal carotid artery stent present: Plan: Patient is doing well post TCAR. He has no neurological deficits. (2) Postoperative hypotension: Plan: Resolved. Will D/C today. Admission and Anticipated Discharge Date Admission Date: March 08, 2023 Subjective Patient awake and alert without complaint. Sitting up eating. Off alanna Physical Exam Constitutional: WD/WN, vitals as above Neck: trachea midline Respiratory: normal respiratory effort; no respiratory distress Cardiovascular: Rate/Rhythm: regular rate and regular rhythm Skin: + incision (There is minimal swelling with a small amount of ecchymosis present ) Neurologic: CN's II-XI intact bilaterally and moves all extremities Psychiatric: Orientation: alert and oriented x 3 Results & Data Vital Signs (Past 12 Hours) Vital Signs Pulse Resp BP Pulse Ox 03/10/23 05:00 63 19 100 03/10/23 05:00 120/53 L 03/10/23 04:30 62 17 99 03/10/23 04:00 62 19 100 03/10/23 04:00 117/45 L 03/10/23 03:30 60 16 96 03/10/23 03:00 60 15 98 03/10/23 03:00 108/43 L 03/10/23 02:30 59 L 17 95 03/10/23 02:00 60 16 100 03/10/23 02:00 113/46 L 03/10/23 01:30 60 18 100 03/10/23 01:00 62 18 99 03/10/23 01:00 124/46 L 03/10/23 00:00 60 20 96 03/10/23 00:00 106/36 L 03/10/23 00:00 106/36 L 03/09/23 23:00 60 100 03/09/23 23:00 140/61 03/09/23 22:00 60 17 96 03/09/23 22:00 128/53 L 03/09/23 21:30 62 20 100 03/09/23 21:18 107/43 L 03/09/23 21:18 60 23 98 03/09/23 21:18 107/43 L 03/09/23 21:00 60 29 H 95 03/09/23 21:00 126/59 L 03/09/23 20:45 62 17 96 06/01/23 20:45 132/60 06/01/23 20:30 62 0 L 100 03/09/23 20:30 123/53 L 03/09/23 20:15 122/60 03/09/23 20:15 62 12 98 03/09/23 20:00 58 L 22 98
[2023-03-10] MEDS: TICAGRELOR 90 MG TAB PO SCH (07:46)
[2023-03-10] MEDS: ASPIRIN 81 MG ECTAB PO SCH (07:46)
[2023-03-10] MEDS: EZETIMIBE 10 MG TABLET PO SCH (07:46)
[2023-03-10] MEDS: MULTIVITAMIN TAB PO SCH (07:46)
--- NOTE | 2023-03-10 07:48 | Discharge Summary ---
Date of Service March 10, 2023 Admission HPI Per Admitting Provider SUBJECTIVE: _I had the pleasure of seeing Armando today for evaluation of his carotid disease. As you know he is a 77-year-old gentleman who is being followed for carotid disease in the past. He recently had a CT angiogram which showed a greater 90% narrowing of his right internal carotid artery. He is asymptomatic at this point. He has no complaints of weakness paresthesias or amaurosis fugax. He does have a history of coronary occlusive disease with bypass done in 2020. He also has history of hypertension hyperlipidemia and prediabetes. His other complaints is a problem with achalasia where he is followed by GI at [place]. Admission Exam Per Admitting Provider General: _Patient is awake alert and oriented x3. He is in no apparent distress. His blood pressure is 166/82 on the left and 158/80 on the right. HEENT: _ Heart: His heart had a regular rate and rhythm. There is a right carotid bruit auscultated. Chest: Lungs are clear to auscultation. Abdomen: _Abdominal exam is benign. I cannot appreciate a widened pulse. Extremity: _He is got normal upper and lower extremity pulses. No ulcerations are noted of the upper or lower extremities. Neuro: _ Principal Diagnosis Right carotid stenosis Discharge Exam Constitutional WD/WN, vitals as above Neck trachea midline Respiratory normal respiratory effort; no respiratory distress Cardiovascular Rate/Rhythm: regular rate and regular rhythm Skin + incision (There is minimal swelling with a small amount of ecchymosis present ) Neurologic CN's II-XI intact bilaterally and moves all extremities Psychiatric Orientation: alert and oriented x 3 Discharge Data Allergies Allergy/AdvReac Type Severity Reaction Status Date / Time latex Allergy Mild "BURNING Verified 03/08/23 08:58 SENSATION AT THE DENTIST" pollen extracts Allergy Mild IN THE Verified 03/08/23 08:58 SPRING, ITCHY EYES, RUNNY NOSE No Known Drug Allergies Allergy Verified 03/08/23 08:58 Consultations 03/08/23 13:17 Consult Middle Card Tender Routine Procedures Performed Operation Date: 03/08/23 10:30 Actual Procedures p Right Transcarotid Artery Revascularization, ultrasoundleft common femoral vein(Right) - Norbert Whitehead MD Ordered Studies 03/08/23 07:20 EV angio carotid cerv RT Routine US EV guide vascular access Routine Hospital Course (1) Internal carotid artery stent present: Patient is doing well post TCAR. He has no neurological deficits. (2) Postoperative hypotension: Resolved. Will D/C today. Total Time Total Time Spent Total Time Spent (In Minutes): 0 Discharge Plan Discharge Items Patient Disposition: Home - Self-Care Reason For Visit: RIGHT CAROTID STENOSIS Discharge Diagnosis: right internal carotid artery stenosis Activity: Per Instructions section Non-emergency contact: Surgeon Call non-emergency contact if: your temperature is above 101.5, your wound has increased redness, your wound has increased drainage and your wound pain has increased Follow-up/Referrals: Taye Rm MD [Primary Care Provider] - Norbert Whitehead MD [Physician] - 03/20/23 2:00 pm Diet: Heart Healthy Addtl Attending Provider Instructions: SPECIAL CARE INSTRUCTIONS: Medications: * Continue to take Aspirin, brilinta, and state non stop for 30days post procedure. If you need to stop any of the three in the first year after the procedure, notify my office. Incision Care: * You may shower, but do not rub incision. You may let the warm soapy water run over it. Be sure to dry the incision well after bathing. * Do not shave directly over the incision until it is healed. * DO NOT IMMERSE THE INCISION IN A TUB/POOL/etc. UNTIL HEALED. Restrictions: * Do not drive for at least one week or if you are still taking any narcotic pain medication. * Do not lift anything heavier than a gallon of milk for one week after going home. Possible Complications: * Numbness - It is normal to have some numbness around the incision. Numbness can extend beyond the incision to areas of the neck, ear and face. The numbness is due to bruising of nerves during the surgery and will gradually improve over a period of months. * Hoarseness/Difficulty Speaking and Swallowing - The bruising of nerves in the neck can also cause a hoarse voice, difficulty speaking or swallowing. This may improve over time, HOWEVER, if it continues for more than a few days please contact our office ([phone]). * Excessive Swelling - There will be some swelling immediately after surgery which usually resolves within one week. If you notice that the swelling is getting worse, notify your surgeon ([phone]). * Drainage/Bleeding - If there is any drainage or bleeding, it should be a very small amount (less than a teaspoon per day). If you have excessive bleeding or drainage from the incision, call your surgeon ([phone]) right away. ACTIVATION OF EMERGENCY MEDICAL SYSTEM: Call 911, immediately, if you experience any of the following: Warning Signs and Symptoms of Stroke: * Sudden numbness or weakness of the face, arm or leg, especially on one side of the body * Sudden confusion, trouble speaking or understanding * Sudden trouble seeing in one or both eyes * Sudden trouble walking, dizziness, loss of balance or coordination * Sudden severe headache with no cause Do not delay calling 911 if you experience any warning signs or symptoms of a stroke. Delay in seeking medical attention may affect what treatments can be given to you. Risk Factors for Stroke: You can reduce your chances of stroke by working with your medical provider to adopt a healthy lifestyle. Some specific ways to lower your chance of stroke are: * If you are a smoker, now is the time to stop smoking cigarettes * If you are diabetic, improve the control of your blood sugars * Avoid excessive amounts of alcohol * Control high blood pressure * Lose weight if you are overweight * Be sure to lead an active lifestyle * Eat a healthy diet low in salt, cholesterol and fat You should know about other risk factors for stroke that you are unable to control. These include: * Age 55 years or older * Male gender * Certain racial groups: , or / * Family History of Stroke, Mini stroke or Heart Attack * Sickle Cell Disease You will be receiving a call from the Vascular Surgery Nurse after you are discharged. FOLLOW UP VISIT: It is important for you to keep your follow up appointments with your medical provider. Keep any scheduled doctor appointments. Call [phone] to schedule a follow up appointment if one not already scheduled. Pending Studies at Discharge: No Stand-Alone Forms: My [employer], Smoking Cessation Medications and DC Order Prescriptions: New pseudoephedrine HCl [Sudafed] 30 mg Tablet 60 mg PO Q6H PRN (Reason: hypotension) Qty: 14 0RF Rx Instructions: Take one every six hours for blood pressure less than 100 systolic Continued atorvastatin 80 mg tablet 80 mg PO HS Qty: 90 3RF esomeprazole magnesium [Nexium] 40 mg capsule,delayed release(DR/EC) 40 mg PO QPM Qty: 90 3RF Xarelto 20 mg tablet 20 mg PO QPM Rx Instructions: must administer with evening meal aspirin [Adult Low Dose Aspirin] 81 mg tablet,delayed release (DR/EC) 81 mg PO QAM ezetimibe [Zetia] 10 mg tablet 5 mg PO QAM multivitamin Tablet 1 tab PO QAM amlodipine 5 mg tablet 5 mg PO QAM hydrochlorothiazide 25 mg tablet 25 mg PO QAM irbesartan [Avapro] 300 mg tablet 300 mg PO QAM Brilinta 75 mg PO BID sildenafil [Viagra] 100 mg tablet 100 mg PO UD PRN (Reason: sexual activity) Rx Instructions: administer 30 minutes to 4 hours before activity Discharge Orders: Discharge Order (Routine); Ordered 03/10/23 Ordered By: Norbert Whitehead Admission Data Admit Date/Time: 03/08/23 09:22 Attending Provider: Norbert Whitehead Admit Provider: Norbert Whitehead Primary Care Provider: Taye Rm Other Providers: Enrike Perez ; Raffy March Seth D. ; James Brady ; Gilbert Lock ; Dashawn Antonio ; Tea Brandon ; Pancho Richards ; Katerin Hanley
[2023-03-10] MEDS ORDERED: MAGNESIUM OXIDE 400 MG TAB PO SCH (09:00)
== END 2023-03-10 10:30 | disposition home or self-care (01) | DRG 35 ==
LOC: ASU 08:13 → 1E 09:22
PROC: EV.TCAR (2023-03-08 10:30)